=== PATIENT | female | born 1995 | race Caucasian/White ===

== ENCOUNTER → 2017-10-19 09:30 | Outpatient (CLI) | payer BC, OTHER, SELFPAY ==
[2017-10-19 11:19] LABS: Protein, Urine (Random) 9.8 mg/dL (<11.9)
[2017-10-19 11:21] LABS: Partial Thromboplast Time 29.9 Seconds (24.1-36.2); Prothrombin Time (Protime)PT. 13.3 SECONDS (11.7-14.9)
[2017-10-19 11:23] LABS: ALB/GLOB Ratio 0.7 RATIO (0.9-2.4); AST(SGOT) 15 U/L (15-37); Alanine Aminotransfer ALT/SGPT 12 U/L (13-56); Albumin, Serum 2.5 g/dL (3.2-5.0); Alkaline Phosphatase 135 U/L (45-117); Anion Gap 8 (5-15); BUN 4 mg/dL (7-18); BUN/Creat Ratio 6.3 RATIO (10-20); Chloride 106 mmol/L (98-107); Creatinine, Serum 0.63 mg/dL (0.55-1.02); EST Glomerular Filtration Rate 124 mL/min (>60); Est Glom Filt Rate - Afr Amer 150 mL/min (>60); Globulin 3.8 g/dL (2.2-4.2); Glucose 81 mg/dL (74-106); Potassium 3.7 mmol/L (3.5-5.1); Protein, Total 6.3 g/dL (6.4-8.2); Sodium Level 139 mmol/L (136-145)
[2017-10-19 11:39] LABS: Hematocrit 39.4 % (37-47); Hemoglobin 12.9 g/dl (12.0-15.0); Mean Corp Hgb Conc 32.7 g/gl (32-36); Mean Corpuscular Hgb 30.6 pg (27.0-32.0); Mean Corpuscular Volume 93.6 fL (81-99); Mean Platelet Vol. 11.2 fl (6.2-12.0); Platelet Count 196 K/mm3 (150-450); RBC Distribution Width CV 13.2 % (11.6-14.6); RBC Distribution Width SD 43.8 fl (35.1-43.9); Red Blood Count 4.21 M/mm3 (4.2-5.4); White Blood Count 9.1 K/mm3 (4.4-11.0)
[2017-10-19 11:40] LABS: Scan Indicated on CBC? Y/N NO
[2017-10-19 13:22] LABS: Group B Strep DNA By PCR POSITIVE (Negative); Probe Check PASS
== END ==
PROVIDERS: Family Provider Internal Medicine; PCP Internal Medicine; Visit Provider Obstetrics & Gynecology
DX: Z36.85 Encounter for antenatal screening for Streptococcus B (principal)
CPT/HCPCS: 80053; 82570; 84156; 84550; 85027; 85610; 85730; 87653

== ENCOUNTER 2017-10-22 11:20 | Inpatient (IN) | payer BC, SELFPAY ==
[2017-10-22 11:29] VITALS: BMI 35.6
[2017-10-22] MEDS: miSOPROStol 25 MCG TABLET PO ×2 (12:38→16:28)
[2017-10-22] MEDS: Lactated Ringers 1,000 ML 50 ML IV (12:38)
[2017-10-22 12:40] LABS: Hematocrit 37.8 % (37-47); Hemoglobin 12.6 g/dl (12.0-15.0); Mean Corp Hgb Conc 33.3 g/gl (32-36); Mean Corpuscular Hgb 30.4 pg (27.0-32.0); Mean Corpuscular Volume 91.1 fL (81-99); Mean Platelet Vol. 10.7 fl (6.2-12.0); Platelet Count 196 K/mm3 (150-450); RBC Distribution Width CV 13.3 % (11.6-14.6); RBC Distribution Width SD 43.6 fl (35.1-43.9); Red Blood Count 4.15 M/mm3 (4.2-5.4); Scan Indicated on CBC? Y/N NO
[2017-10-22 12:54] LABS: AST(SGOT) 19 U/L (15-37); Alanine Aminotransfer ALT/SGPT 11 U/L (13-56); EST Glomerular Filtration Rate 130 mL/min (>60); Est Glom Filt Rate - Afr Amer 157 mL/min (>60); Estimated Creatinine Clearance 136.51 ml/min
[2017-10-22 12:55] LABS: ALB/GLOB Ratio 0.7 RATIO (0.9-2.4); AST(SGOT) 17 U/L (15-37); Alanine Aminotransfer ALT/SGPT 12 U/L (13-56); Albumin, Serum 2.4 g/dL (3.2-5.0); Alkaline Phosphatase 141 U/L (45-117); Anion Gap 10 (5-15); BUN 5 mg/dL (7-18); Calcium,Total 7.9 mg/dL (8.5-10.1); Chloride 107 mmol/L (98-107); Creatinine, Serum 0.62 mg/dL (0.55-1.02); EST Glomerular Filtration Rate 125 mL/min (>60); Est Glom Filt Rate - Afr Amer 151 mL/min (>60); Estimated Creatinine Clearance 132.11 ml/min; Globulin 3.6 g/dL (2.2-4.2); Glucose 103 mg/dL (74-106); LDH 189 U/L (84-246); Potassium 3.5 mmol/L (3.5-5.1); Sodium Level 140 mmol/L (136-145); Uric Acid 4.6 mg/dL (2.6-6.0)
[2017-10-22 13:45] LABS: Protein:Creat Ratio 252 mg/g CRE (0-200)
--- NOTE | 2017-10-22 20:31 | PCM.PN.BLA ---
Progress Note LABOR PROGRESS NOTE Denies headache again, vision changes. Has mild cramping pain. AVSS, BP 132/84, P 71 GEN - NAD, AAO x 4 FHR 135, moderate variability, + accelerations, no decelerations TOCO 4/10 min SVE 3/50/-3 A/P: 22yo G1 @ 37 3/7wga IOL for gHTN, Cat I FHR -Labs reviewed and not c/w severe preeclampsia -Will give additional dose 25mcg cytotec -No si/sx worsening HTN -Start PCN for GBS ppx
[2017-10-22] MEDS: Oxytocin 30 units/NS 500 ml 30 UNITS/500 ML IV.SOLN IV (20:49)
[2017-10-23] MEDS: fentaNYL-bupivacaine (epidural) 100 ML BAG EPIDURAL ×4 (05:20→19:58)
--- NOTE | 2017-10-23 07:23 | PCM.PN.BLA ---
Progress Note LABOR PROGRESS NOTE No issues overnight. She is comfortable with epidural. Denies headache, vision changes. AVSS, BP 136/76, 140/73. P 76 R 17 GEN - NAD, AAO x 3 FHR 150, moderate variability, + accelerations. No decelerations TOCO 4/10 min A/P: 22yo G1 @ 37 4/7wga with gHTN, IOL on s/p cytotec on pitocin, Cat I FHR -Amniotomy performed with clear fluid -Repeat SVE in approx 1 hour, if no change place IUPC.
[2017-10-23] MEDS: Lactated Ringers 1,000 ML 50 ML IV ×4 (08:15→23:15)
--- NOTE | 2017-10-23 15:00 | PCM.PN.BLA ---
Progress Note LABOR PROGRESS NOTE No complaints. Denies headache, vision changes. AVSS GEN - NAD FHR 150, moderate variability, + late decelerations SVE 5/90/-2 by my exam TOCO 3/10 min, MVU > 200 A/P: 22yo G1@ 37 4/7wga, IOL for gHTN, Cat II FHR -FHR decelerations resolved with maternal repositioning -Continue pitocin as tolerated by mother and fetus
--- NOTE | 2017-10-23 18:16 | PCM.PN.BLA ---
Progress Note LABOR PROGRESS NOTE Denies headache, vision changes, RUQ or abdominal pain. She feels well. AVSS, BP 143/87 GEN - NAD, AAO x 3 FHR 165, moderate variability, + accelerations, no deceleration SVE 6/95/-1 per MAXINE Mcgee TOCO 3/10 min A/P: 22yo G1 @ 37 4/7wga with gHTN, IOL on pitocin, Cat I FHR -Continue pitocin as tolerated by mother and fetus -No si/sx of worsening hypertension or preeclampsia -Maternal and statuses overall reassuring
[2017-10-24] MEDS: Lactated Ringers 1,000 ML 50 ML IV (04:00)
[2017-10-24] MEDS: fentaNYL-bupivacaine (epidural) 100 ML BAG EPIDURAL ×2 (04:30→06:30)
[2017-10-24] MEDS: Ondansetron 4 MG/2 ML Vial IV (04:54)
[2017-10-24] MEDS: Oxytocin 30 units/NS 500 ml 30 UNITS/500 ML IV.SOLN 334 UNITS IV (08:40)
[2017-10-24] MEDS: Methylergonovine 0.2 MG/ML Ampul IM (08:42)
--- NOTE | 2017-10-24 08:53 | PCM.OB.VAG ---
Vaginal Delivery Maternal Presentation: Medically Indicated Induction Method of Induction: Amniotomy, Cytotec Medical Reason for Induction: Gestational Hypertension Amniotic Membrane Rupture Type: Artificial Amniotic Fluid Description: Clear Final AYAAN: 11/09/17 Final AYAAN Source: US <20 weeks Gestational age: 37 Weeks and 5 Days Date of Procedure: 10/24/17 Pre-Operative Diagnosis: IUP, Gestational Hypertension Post-Operative Diagnosis: IUP, Gestational Hypertension Surgery/ Procedure Performed: Vacuum Assisted Vaginal Delivery Type of Anesthesia: Epidural, Local with 1% lidocaine Description of Procedure: Spontaneous vaginal delivery of a viable male with Apgars of 7/9/9 with a 3 vessel normal placenta and cord around the neck ?1 loose. No episiotomy. Second-degree midline laceration repaired with 3-0 Vicryl suture with epidural and local anesthetic. Kiwi vacuum used ?3 gentle pulls from low outlet with a single pop off to expedite delivery of the head after approximately 4-5 hours of pushing and maternal fatigue. Sponge counts okay. Delivery physician: Doroteo Gilmore MD. Presentation: Vertex Placental Delivery Description: Spontaneous Placenta Disposition: [facility] Cord Vessel Description: 3 Vessels Cord Gases drawn per routine: ABG Cord Entanglement: Around neck x 1, loose Estimated Blood Loss: 250 cc Infant A gender: Male (1 minute): 7 (5 minute): 9 Episiotomy Description: None Laceration: Midline, Perineal Extension/lac, 2nd degree Medications given after delivery: IV Pitocin, IM Methergin Complications: None
--- NOTE | 2017-10-24 08:58 | OP.PCM_ITS ---
Vaginal Delivery Maternal Presentation: Medically Indicated Induction Method of Induction: Amniotomy, Cytotec Medical Reason for Induction: Gestational Hypertension Amniotic Membrane Rupture Type: Artificial Amniotic Fluid Description: Clear Final AYAAN: 11/09/17 Final AYAAN Source: US <20 weeks Gestational age: 37 Weeks and 5 Days Date of Procedure: 10/24/17 Pre-Operative Diagnosis: IUP, Gestational Hypertension Post-Operative Diagnosis: IUP, Gestational Hypertension Surgery/ Procedure Performed: Vacuum Assisted Vaginal Delivery Type of Anesthesia: Epidural, Local with 1% lidocaine Description of Procedure: Spontaneous vaginal delivery of a viable male with Apgars of 7/9/9 with a 3 vessel normal placenta and cord around the neck ?1 loose. No episiotomy. Second-degree midline laceration repaired with 3-0 Vicryl suture with epidural and local anesthetic. Kiwi vacuum used ?3 gentle pulls from low outlet with a single pop off to expedite delivery of the head after approximately 4-5 hours of pushing and maternal fatigue. Sponge counts okay. Delivery physician : Doroteo Gilmore MD. Presentation: Vertex Placental Delivery Description: Spontaneous Placenta Disposition: [facility] Cord Vessel Description: 3 Vessels Cord Gases drawn per routine: ABG Cord Entanglement: Around neck x 1, loose Estimated Blood Loss: 250 cc Infant A gender: Male (1 minute): 7 (5 minute): 9 Episiotomy Description: None Laceration: Midline, Perineal Extension/lac, 2nd degree Medications given after delivery: IV Pitocin, IM Methergin Complications: None
--- NOTE | 2017-10-24 08:58 | PCM.DCVAG ---
Discharge Diet: No Restrictions Discharge Activity: May Shower, May Take a Tub Bath May resume sexual activity in: 4-6 weeks Additional Activity Instructions:: Nothing in the vagina for 4-6 weeks. You may return to work/school in 6 weeks. Call your doctor if you observe: Fever of 101 or Higher, Inability to urinate, Inability to have a bowel movement, Using more than one pad per hour Additional Instructions: If you experience any of the following, contact your healthcare provider. Bleeding that soaks a pad every hour for 2 hours Unrelieved incision or abdominal pain Swelling, redness, discharge or bleeding from your incision or episiotomy site Your incision begins to separate Problems urinating (including inability to urinate or burning while urinating). Visual changes Severe headache Flu-like symptoms Pain or redness in one of both of your breasts Pain, warmth, tenderness or swelling in your legs, especially the calf area Frequent nausea and vomiting Symptoms of depression or anxiety If you experience any of the following, call 911 or go to the nearest Emergency Room. Chest pain Problems breathing Seizure activity Partial or complete paralysis of a body part, slurred speech, weakness or drooping of the face, or a sudden inability to walk or hold your balance Allergies/Adverse Reactions: Allergies No Known Allergies Allergy (Verified 10/22/17 11:58) Medications to take at Discharge Vits [Prenatabs FA] 1 tablet PO DAILY 10/22/17 Please Follow Up With: Danuta Heredia MD - [phone] When: Call to make an appointment with your doctor in 6 weeks. Primary Care Physician: Ann Zhu DO [Primary Care Provider] -
--- NOTE | 2017-10-24 08:59 | DCINST_ITS ---
Discharge Diet: No Restrictions Discharge Activity: May Shower, May Take a Tub Bath May resume sexual activity in: 4-6 weeks Additional Activity Instructions:: Nothing in the vagina for 4-6 weeks. You may return to work/school in 6 weeks. Call your doctor if you observe: Fever of 101 or Higher, Inability to urinate, Inability to have a bowel movement, Using more than one pad per hour Additional Instructions: If you experience any of the following, contact your healthcare provider. * Bleeding that soaks a pad every hour for 2 hours * Unrelieved incision or abdominal pain * Swelling, redness, discharge or bleeding from your incision or episiotomy site * Your incision begins to separate * Problems urinating (including inability to urinate or burning while urinating) . * Visual changes * Severe headache * Flu-like symptoms * Pain or redness in one of both of your breasts * Pain, warmth, tenderness or swelling in your legs, especially the calf area * Frequent nausea and vomiting * Symptoms of depression or anxiety If you experience any of the following, call 911 or go to the nearest Emergency Room. * Chest pain * Problems breathing * Seizure activity * Partial or complete paralysis of a body part, slurred speech, weakness or drooping of the face, or a sudden inability to walk or hold your balance Allergies/Adverse Reactions: Allergies No Known Allergies Allergy (Verified 10/22/17 11:58) Medications to take at Discharge Vits [Prenatabs FA] 1 tablet PO DAILY 10/22/17 Please Follow Up With: Danuta Heredia MD - [phone] When: Call to make an appointment with your doctor in 6 weeks. Primary Care Physician: Ann Zhu DO [Primary Care Provider] -
[2017-10-24] MEDS: Oxytocin 30 units/NS 500 ml 30 UNITS/500 ML IV.SOLN 167 UNITS IV (09:10)
[2017-10-24] MEDS: 0.9% Saline Lock 10 ML Syringe IV (10:18)
[2017-10-24 11:35] VITALS: BP 140/82; PULSE 70; RESP 14; TEMP 37.1; O2SAT 98
[2017-10-24] MEDS: Senna/Docusate Sodium 1 Tablet PO (13:04)
[2017-10-24] MEDS: Ibuprofen 600 MG Tablet PO (13:04)
[2017-10-24 16:35] VITALS: BP 121/73; PULSE 69; RESP 14; TEMP 37.1; O2SAT 98
[2017-10-24 21:00] VITALS: BP 115/76; PULSE 68; RESP 18; TEMP 36.6; O2SAT 98
[2017-10-24 23:35] VITALS: BP 124/82; PULSE 86; RESP 16; TEMP 36.9; O2SAT 97
[2017-10-25 03:00] VITALS: BP 130/77; PULSE 86; RESP 16; TEMP 36.3; O2SAT 97
--- NOTE | 2017-10-25 07:57 | PCM.PN.OB ---
Subjective: Patient without complaints. Breast-feeding going well. Desires to stay until tomorrow. - Physical Exam Vital Signs AF, VSS Temp Pulse Resp BP Pulse Ox 97.4 F L 86 16 130/77 H 97 10/25/17 03:00 10/25/17 03:00 10/25/17 03:00 10/25/17 03:00 10/25/17 03:00 Oxygen Delivery Method Room Air Weight: 220 lb 10.923 oz Body Mass Index (BMI) 35.6 Intake and Output for Last 24 Hours 10/23/17 10/24/17 10/25/17 23:59 23:59 23:59 Intake Total 7533 / 7533 Output Total 3450 / 3450 Balance 4083 / 4083 Medical Necessity - Tobacco Use Smoking Status: Never smoker Assessment/Plan Doing well. Continue present care. Anticipate release tomorrow.
[2017-10-25 10:00] VITALS: BP 115/75; PULSE 64; RESP 16; TEMP 36.9
[2017-10-25] MEDS: Ibuprofen 600 MG Tablet PO ×2 (11:12→18:38)
[2017-10-25] MEDS: Senna/Docusate Sodium 1 Tablet PO (11:14)
[2017-10-25 14:00] VITALS: BP 119/71; PULSE 69; RESP 16; TEMP 36.8
[2017-10-25 15:09] LABS: Hematocrit 34.2 % (37-47); Hemoglobin 11.9 g/dl (12.0-15.0); Mean Corp Hgb Conc 34.8 g/gl (32-36); Mean Corpuscular Hgb 31.6 pg (27.0-32.0); Mean Platelet Vol. 10.6 fl (6.2-12.0); Platelet Count 206 K/mm3 (150-450); RBC Distribution Width CV 13.6 % (11.6-14.6); RBC Distribution Width SD 44.3 fl (35.1-43.9); Red Blood Count 3.76 M/mm3 (4.2-5.4); White Blood Count 16.6 K/mm3 (4.4-11.0)
[2017-10-25 15:11] LABS: Scan Indicated on CBC? Y/N NO
[2017-10-25 21:00] VITALS: BP 124/78; PULSE 68; RESP 15; TEMP 37.1
[2017-10-26 02:00] VITALS: BP 127/76; PULSE 74; RESP 15
--- NOTE | 2017-10-26 08:25 | PCM.PN.OB ---
Subjective: No issues overnight. Nursing is going well. Denies headache, vision changes or abdominal pain. Lochia is scant. Her swelling is improved from yesterday. Objective: AVSS - Physical Exam General: Alert, Oriented x3, Cooperative, No apparent distress HEENT: Atraumatic, Normocephalic Lungs: Normal air movement Cardiovascular: Regular rate, Regular Rhythm, Normal S1, Normal S2 Abdomen: Soft, Non Tender, Non-Distended, - - Fundus firm and nontender at 2 FW below umbilicus Extremities: - - +2 b/l pedal edema to below the knee Neurological: Neuro grossly intact Psych/Mental Status: Normal Affect, Appropriate, Alert and oriented to time, place, person, mood and affect Vital Signs Temp Pulse Resp BP Pulse Ox 97.6 F L 70 16 123/72 H 98 10/26/17 08:30 10/26/17 08:30 10/26/17 08:30 10/26/17 08:30 10/26/17 08:30 Oxygen Delivery Method Room Air Weight: 100.1 kg Body Mass Index (BMI) 35.6 Laboratory Tests Past 24 Hrs 10/25/17 14:35 WBC 16.6 H RBC 3.76 L Hgb 11.9 L Hct 34.2 L MCV 91.0 MCH 31.6 MCHC 34.8 RDW 13.6 RDW Differential 44.3 H Plt Count 206 MPV 10.6 Medical Necessity - Tobacco Use Smoking Status: Never smoker Assessment/Plan 22yo PPD#2 s/p VAVD doing well -h/o gHTN, no si/sx worsening -Rh positive -Plan for d/c home today
[2017-10-26 08:30] VITALS: BP 123/72; PULSE 70; RESP 16; TEMP 36.4; O2SAT 98
[2017-10-26] MEDS: Dibucaine 30 GM Tube 1 APPLIC TOPICAL (08:30)
--- NOTE | 2017-10-26 11:38 | PCM.DCVAG ---
Discharge Diet: No Restrictions Discharge Activity: Return to Normal Activity, May Shower, May Take a Tub Bath May resume sexual activity in: 6 weeks Lifting Restrictions: 20 lb Additional Activity Instructions:: Nothing in the vagina for 4-6 weeks. You may return to work/school in 6 weeks. Call your doctor if you observe: Fever of 101 or Higher, Inability to urinate, Inability to have a bowel movement, Using more than one pad per hour, Chest pain Additional Instructions: If you experience any of the following, contact your healthcare provider. Bleeding that soaks a pad every hour for 2 hours Fever 100.4 or higher Unrelieved incision or abdominal pain Swelling, redness, discharge or bleeding from your incision or episiotomy site Your incision begins to separate Problems urinating (including inability to urinate or burning while urinating). Visual changes Severe headache Flu-like symptoms Pain or redness in one of both of your breasts Pain, warmth, tenderness or swelling in your legs, especially the calf area Frequent nausea and vomiting Symptoms of depression or anxiety If you experience any of the following, call 911 or go to the nearest Emergency Room. Chest pain Problems breathing Seizure activity Partial or complete paralysis of a body part, slurred speech, weakness or drooping of the face, or a sudden inability to walk or hold your balance Allergies/Adverse Reactions: Allergies No Known Allergies Allergy (Verified 10/22/17 11:58) Medications to take at Discharge Vits [Prenatabs FA] 1 tablet PO DAILY 10/22/17 Please Follow Up With: Danuta Heredia MD - Nurse BP check only When: 1 week Please Follow Up With: Danuta Heredia MD - visit When: 6 weeks Primary Care Physician: Ann Zhu DO [Primary Care Provider] -
--- NOTE | 2017-10-26 11:41 | DCINST_ITS ---
Discharge Diet: No Restrictions Discharge Activity: Return to Normal Activity, May Shower, May Take a Tub Bath May resume sexual activity in: 6 weeks Lifting Restrictions: 20 lb Additional Activity Instructions:: Nothing in the vagina for 4-6 weeks. You may return to work/school in 6 weeks. Call your doctor if you observe: Fever of 101 or Higher, Inability to urinate, Inability to have a bowel movement, Using more than one pad per hour, Chest pain Additional Instructions: If you experience any of the following, contact your healthcare provider. * Bleeding that soaks a pad every hour for 2 hours * Fever 100.4 or higher * Unrelieved incision or abdominal pain * Swelling, redness, discharge or bleeding from your incision or episiotomy site * Your incision begins to separate * Problems urinating (including inability to urinate or burning while urinating) . * Visual changes * Severe headache * Flu-like symptoms * Pain or redness in one of both of your breasts * Pain, warmth, tenderness or swelling in your legs, especially the calf area * Frequent nausea and vomiting * Symptoms of depression or anxiety If you experience any of the following, call 911 or go to the nearest Emergency Room. * Chest pain * Problems breathing * Seizure activity * Partial or complete paralysis of a body part, slurred speech, weakness or drooping of the face, or a sudden inability to walk or hold your balance Allergies/Adverse Reactions: Allergies No Known Allergies Allergy (Verified 10/22/17 11:58) Medications to take at Discharge Vits [Prenatabs FA] 1 tablet PO DAILY 10/22/17 Please Follow Up With: Danuta Heredia MD - Nurse BP check only When: 1 week Please Follow Up With: Danuta Heredia MD - visit When: 6 weeks Primary Care Physician: Ann Zhu DO [Primary Care Provider] -
[2017-10-26 13:14] VITALS: PULSE 64; RESP 18; TEMP 36.9
== END 2017-10-26 13:05 | disposition home or self-care (01) | DRG 775 ==
PROVIDERS: Obstetrics & Gynecology; Admitting Provider Obstetrics & Gynecology; Family Provider Internal Medicine; PCP Internal Medicine; Visit Provider Obstetrics & Gynecology
DX: O13.3 Gestational [pregnancy-induced] hypertension without significant proteinuria, third trimester (principal); O69.81X0 Labor and delivery complicated by cord around neck, without compression, not applicable or unspecified; O70.1 Second degree perineal laceration during delivery; O99.824 Streptococcus B carrier state complicating childbirth; Z37.0 Single live birth; Z3A.37 37 weeks gestation of pregnancy
CPT/HCPCS: 59025; 59050; 80053; 82565; 82570; 83615; 84156; 84450; 84460; 84550; 85027; 86850; 86900; 99218; J7120; A4216; G0378; J2405

== ENCOUNTER → 2020-05-28 07:16 | Outpatient (CLI) | payer BC, SELFPAY ==
[2020-05-28 08:28] LABS: T3 Total - Triiodothyronine 1.03 ng/mL (0.6-1.81)
[2020-05-28 08:47] LABS: Estradiol 31.4 pg/mL; Follicle Stimulating Hormone 5.8 mIU/mL; Free T3 2.5 pg/mL (2.18-3.98); Luteinizing Hormone 7.8 mIU/mL; Prolactin 11.4 ng/mL; T4 Free Direct 0.91 ng/dL (0.76-1.46); Thyroid Stim Hormone (TSH) 2.33 uIU/mL (0.358-3.74)
[2020-05-29 20:07] LABS: Thyroid Peroxidase AB < 9 IU/mL (0-34)
[2020-05-30 09:10] LABS: Anti-Thyroglobulin AB < 1.0 IU/mL (0.0-0.9); Sex Hormone-binding Globulin 45.7 nmol/L (24.6-122.0); Thyroglobulin, Serum Qt. 13.2 ng/mL (1.5-38.5)
[2020-06-04 16:15] LABS: 17-Hydroxyprogesterone 47 ng/dL (.)
== END ==
PROVIDERS: Referring Provider Obstetrics & Gynecology; Visit Provider Obstetrics & Gynecology
DX: E03.9 Hypothyroidism, unspecified (principal); N92.5 Other specified irregular menstruation; E28.1 Androgen excess; E22.1 Hyperprolactinemia
CPT/HCPCS: 36415; 82533; 82627; 82670; 83001; 83002; 83498; 84146; 84270; 84403; 84432; 84439; 84443; 84480; 84481; 86376; 86800; 82626

== ENCOUNTER → 2020-07-03 | Outpatient (CLI) | payer BC, SELFPAY ==
[2020-07-07 12:55] LABS: HPV Reflexed? NOT INDICATED
== END | disposition home or self-care (01) ==
LOC: LABSPEC 13:45
PROVIDERS: Visit Provider Obstetrics & Gynecology
DX: Z12.4 Encounter for screening for malignant neoplasm of cervix (principal)
CPT/HCPCS: 88175; G0145

== ENCOUNTER → 2020-08-06 08:34 | Outpatient (CLI) | payer BC, SELFPAY ==
[2020-08-06 11:34] LABS: Estradiol 22.4 pg/mL
== END ==
PROVIDERS: Visit Provider Obstetrics & Gynecology
DX: E28.1 Androgen excess (principal); N96 Recurrent pregnancy loss; E28.8 Other ovarian dysfunction
CPT/HCPCS: 36415; 82627; 82670; 84403; 82626

== ENCOUNTER → 2020-08-24 08:06 | Outpatient (CLI) | payer BC, SELFPAY ==
[2020-08-24 09:24] LABS: Progesterone Level 0.91 ng/mL (See Comment)
== END ==
PROVIDERS: Referring Provider Obstetrics & Gynecology; Visit Provider Obstetrics & Gynecology
DX: Z51.81 Encounter for therapeutic drug level monitoring (principal); N92.5 Other specified irregular menstruation; E28.8 Other ovarian dysfunction
CPT/HCPCS: 36415; 84144

== ENCOUNTER → 2020-09-25 08:09 | Outpatient (CLI) | payer BC, SELFPAY ==
[2020-09-25 10:10] LABS: Progesterone Level 0.48 ng/mL (See Comment)
== END ==
PROVIDERS: Referring Provider Obstetrics & Gynecology; Visit Provider Obstetrics & Gynecology
DX: E28.8 Other ovarian dysfunction (principal)
CPT/HCPCS: 36415; 84144

== ENCOUNTER → 2020-11-23 08:50 | Outpatient (CLI) | payer BC, SELFPAY ==
[2020-11-23 10:21] LABS: hCG Titer Quant., Serum 22 mIU/mL (1-3)
== END ==
LOC: LAB.FUTURE 08:54 → WOBLAB 09:12
PROVIDERS: Visit Provider Obstetrics & Gynecology
DX: N91.2 Amenorrhea, unspecified (principal)
CPT/HCPCS: 36415; 84702

== ENCOUNTER → 2021-01-29 15:53 | Outpatient (CLI) | payer BC, SELFPAY ==
[2021-01-29 17:19] LABS: Vitamin B12 641 pg/mL (211-911)
== END ==
PROVIDERS: Visit Provider Obstetrics & Gynecology
DX: Z34.82 Encounter for supervision of other normal pregnancy, second trimester (principal); E53.8 Deficiency of other specified B group vitamins; I10 Essential (primary) hypertension
CPT/HCPCS: 36415; 82607; 83090; 83921

== ENCOUNTER → 2021-05-14 12:13 | Outpatient (CLI) | payer BC, SELFPAY ==
[2021-05-14 14:06] LABS: Hematocrit 37.5 % (37-47); Hemoglobin 12.2 g/dL (12.0-15.0); Mean Corp Hgb Conc 32.5 g/dL (32-36); Mean Corpuscular Hgb 31.1 pg (27.0-32.0); Mean Corpuscular Volume 95.7 fL (81-99); Mean Platelet Vol. 10.4 fl (6.2-12.0); Platelet Count 224 K/mm3 (150-450); RBC Distribution Width CV 13.4 % (11.6-14.6); Red Blood Count 3.92 M/mm3 (4.2-5.4); White Blood Count 9.3 K/mm3 (4.4-11.0)
== END ==
PROVIDERS: Visit Provider Obstetrics & Gynecology
DX: Z34.83 Encounter for supervision of other normal pregnancy, third trimester (principal)
CPT/HCPCS: 36415; 85027

== ENCOUNTER → 2021-07-04 14:04 | Outpatient (CLI) | payer BC, SELFPAY ==
[2021-07-04 14:29] LABS: Bacteria 0 SEEN /hpf (None Seen); Mucous, Urine 0 SEEN /hpf (<or=2+); Red Blood Cells-Urine 0 SEEN /hpf (0-5); White Blood Cells 0 SEEN /hpf (0-5)
[2021-07-04 15:23] LABS: Color, Urine Yellow (Yellow); Glucose, Dipstick Normal (Normal); Ketone-Dipstick Negative (Negative); Leukocyte Esterase-Dipstick Negative /ul (Negative); Nitrite-Dipstick Negative (Negative); Occult Blood-Urine Negative /ul (Negative); Protein-Dipstick Negative (Negative); Urine Bilirubin Dipstick Negative (Negative); Urine Clarity Sl. Cloudy (Clear); Urine Urobilinogen Normal (Normal); Urine pH 6.5 (5.0 - 8.0)
[2021-07-04 15:34] LABS: Hematocrit 38.4 % (37-47); Hemoglobin 12.7 g/dL (12.0-15.0); Mean Corp Hgb Conc 33.1 g/dL (32-36); Mean Corpuscular Hgb 30.5 pg (27.0-32.0); Mean Corpuscular Volume 92.1 fL (81-99); Mean Platelet Vol. 10.8 fl (6.2-12.0); Platelet Count 212 K/mm3 (150-450); RBC Distribution Width CV 13.6 % (11.6-14.6); RBC Distribution Width SD 45.5 fl (35.1-43.9); Red Blood Count 4.17 M/mm3 (4.2-5.4); White Blood Count 5.9 K/mm3 (4.4-11.0)
[2021-07-04 15:39] LABS: Squamous Epithelial Cells - UA 5-10 SEEN /hpf (5-10)
[2021-07-04 16:15] LABS: ALB/GLOB Ratio 0.5 RATIO (0.9-2.4); AST(SGOT) 80 U/L (15-37); Alanine Aminotransfer ALT/SGPT 114 U/L (13-56); Albumin, Serum 2.3 g/dL (3.2-5.0); Alkaline Phosphatase 161 U/L (45-117); Anion Gap 7 (5-15); BUN 6 mg/dL (7-18); BUN/Creat Ratio 9.9 RATIO (10-20); Calcium,Total 8.3 mg/dL (8.5-10.1); Chloride 108 mmol/L (98-107); Creatinine, Serum 0.61 mg/dL (0.55-1.02); EST Glomerular Filtration Rate 125 mL/min (>60); Est Glom Filt Rate - Afr Amer 151 mL/min (>60); Globulin 4.2 g/dL (2.2-4.2); Glucose 100 mg/dL (74-106); Potassium 3.5 mmol/L (3.5-5.1); Protein, Total 6.5 g/dL (6.4-8.2); Sodium Level 139 mmol/L (136-145); Uric Acid 5.1 mg/dL (2.6-6.0)
== END ==
PROVIDERS: Referring Provider Obstetrics & Gynecology; Visit Provider Obstetrics & Gynecology
DX: O26.893 Other specified pregnancy related conditions, third trimester (principal); R10.811 Right upper quadrant abdominal tenderness; Z3A.00 Weeks of gestation of pregnancy not specified
CPT/HCPCS: 36415; 80053; 81001; 84550; 85027; 87506

== ENCOUNTER → 2021-07-05 08:14 | Outpatient (CLI) | payer BC, SELFPAY | PROVIDERS: Referring Provider Obstetrics & Gynecology; Visit Provider Obstetrics & Gynecology | DX: R69 Illness, unspecified (principal) ==

== ENCOUNTER → 2021-07-11 09:21 | Outpatient (CLI) | payer BC, SELFPAY ==
[2021-07-11 10:41] LABS: AST(SGOT) 39 U/L (15-37); Alanine Aminotransfer ALT/SGPT 83 U/L (13-56); Albumin, Serum 2.3 g/dL (3.2-5.0); Alkaline Phosphatase 179 U/L (45-117); Bilirubin, Direct 0.14 mg/dL (0.00-0.30); Globulin 4.4 g/dL (2.2-4.2); Protein, Total 6.7 g/dL (6.4-8.2)
== END ==
PROVIDERS: Referring Provider Obstetrics & Gynecology; Visit Provider Obstetrics & Gynecology
DX: R19.7 Diarrhea, unspecified (principal); O13.3 Gestational [pregnancy-induced] hypertension without significant proteinuria, third trimester; Z3A.00 Weeks of gestation of pregnancy not specified
CPT/HCPCS: 36415; 80053; 80076; 83615; 85027

== ENCOUNTER → 2021-07-15 | Outpatient (CLI) | payer BC, SELFPAY | END | disposition home or self-care (01) | LOC: LABSPEC 14:59 | PROVIDERS: Visit Provider Obstetrics & Gynecology | DX: Z36.85 Encounter for antenatal screening for Streptococcus B (principal) | CPT/HCPCS: 87081 ==

== ENCOUNTER → 2021-07-18 10:31 | Outpatient (CLI) | payer BC, SELFPAY ==
[2021-07-18 13:08] LABS: Hematocrit 38.3 % (37-47); Hemoglobin 12.6 g/dL (12.0-15.0); Mean Corp Hgb Conc 32.9 g/dL (32-36); Mean Corpuscular Hgb 30.9 pg (27.0-32.0); Mean Corpuscular Volume 93.9 fL (81-99); Mean Platelet Vol. 12.2 fl (6.2-12.0); Platelet Count 181 K/mm3 (150-450); RBC Distribution Width CV 13.9 % (11.6-14.6); RBC Distribution Width SD 47.2 fl (35.1-43.9); Red Blood Count 4.08 M/mm3 (4.2-5.4); White Blood Count 6.1 K/mm3 (4.4-11.0)
[2021-07-18 13:23] LABS: ALB/GLOB Ratio 0.5 RATIO (0.9-2.4); AST(SGOT) 17 U/L (15-37); Alanine Aminotransfer ALT/SGPT 27 U/L (13-56); Albumin, Serum 2.1 g/dL (3.2-5.0); Alkaline Phosphatase 171 U/L (45-117); Anion Gap 5 (5-15); BUN 12 mg/dL (7-18); BUN/Creat Ratio 15.9 RATIO (10-20); Calcium,Total 8.7 mg/dL (8.5-10.1); Chloride 109 mmol/L (98-107); Creatinine, Serum 0.75 mg/dL (0.55-1.02); EST Glomerular Filtration Rate 98 mL/min (>60); Est Glom Filt Rate - Afr Amer 118 mL/min (>60); Globulin 4.2 g/dL (2.2-4.2); Glucose 88 mg/dL (74-106); LDH 158 U/L (84-246); Potassium 3.9 mmol/L (3.5-5.1); Protein, Total 6.3 g/dL (6.4-8.2); Sodium Level 140 mmol/L (136-145)
== END ==
PROVIDERS: Obstetrics & Gynecology; Visit Provider Obstetrics & Gynecology
DX: R51.9 Headache, unspecified (principal)
CPT/HCPCS: 36415; 80053; 83615; 85027

== ENCOUNTER 2021-08-07 05:50 | Inpatient (IN) | payer BC, SELFPAY ==
[2021-08-07] VITALS (49 sets, daily range): BP systolic 108–135; BP diastolic 55–84; PULSE 59–90; RESP 16; TEMP 36.7–38.3; O2SAT 90–100; BMI 32.9
[2021-08-07] MEDS: Lactated Ringers 1,000 ML 50 ML IV (06:10)
[2021-08-07] MEDS: Lactated Ringers 500 ML 999 ML IV (06:16)
[2021-08-07 06:33] LABS: Absolute Lymphocyte Count 1.21 X10^3/uL (0.83-4.51); Absolute Neutrophil Count 7.4 X10^3/uL (2.0-7.7); Basophil# 0.06 X10^3/uL; Basophil% 0.6 % (0-1); Eosinophil# 0.05 X10^3/uL; Eosinophils% 0.5 % (0-5); Hematocrit 39.9 % (37-47); Hemoglobin 13.6 g/dL (12.0-15.0); Lymphocyte # 1.21 X10^3/ul (0.83-4.51); Lymphocyte % 12.4 % (19-41); Mean Corp Hgb Conc 34.1 g/dL (32-36); Mean Corpuscular Hgb 31.1 pg (27.0-32.0); Mean Corpuscular Volume 91.1 fL (81-99); Mean Platelet Vol. 11.6 fl (6.2-12.0); Monocyte# 1.04 X10^3/uL; Monocyte% 10.7 % (0-10); NRBC Flagged by Analyzer 0 % (0-5); Neutrophil # 7.35 X10^3/uL (2.7-7.7); Neutrophil % 75.3 % (47-70); Platelet Count 171 K/mm3 (150-450); RBC Distribution Width SD 46.7 fl (35.1-43.9); Red Blood Count 4.38 M/mm3 (4.2-5.4); White Blood Count 9.8 K/mm3 (4.4-11.0)
[2021-08-07 07:26] LABS: Bedside Glucose 102 mg/dL (70-110)
[2021-08-07 07:26] LABS: Bedside Glucose 109 mg/dL (70-110)
[2021-08-07] MEDS: fentaNYL-bupivacaine (epidural) 100 ML BAG EPIDURAL ×2 (07:56→12:29)
[2021-08-07 11:06] LABS: Bedside Glucose 89 mg/dL (70-110)
[2021-08-07] MEDS: Lactated Ringers 1,000 ML 200 ML IV ×2 (11:18→16:38)
[2021-08-07 12:11] LABS: Bedside Glucose 90 mg/dL (70-110)
[2021-08-07 13:41] LABS: Bedside Glucose 81 mg/dL (70-110)
[2021-08-07 15:20] LABS: Bedside Glucose 86 mg/dL (70-110)
[2021-08-07] MEDS: Acetaminophen 500 MG Tablet PO (15:20)
[2021-08-07 16:50] LABS: Bedside Glucose 75 mg/dL (70-110)
[2021-08-07] MEDS: Oxytocin 30 units/NS 500 ml 30 UNITS/500 ML IV.SOLN 334 UNITS IV (18:53)
--- NOTE | 2021-08-07 19:06 | PCM.HP.BLA ---
History and Physical Date of Admission: 08/07/21 ACOG ANTEPARTUM RECORD - HISTORY AND PHYSICAL (08/07/2021) Name: MINH VALENCIA History of this : This is a 26 year old [id number] presents at 40 wks + 4 days gestation in active labor. OB Physician: Danuta Sauceda MD 's Physician: Acosta ...................................................................... : 1995 Age: 26 Address: [address] [place] [address] Phone: (H) [phone] Insurance Carrier: [employer] [facility] [id number] Emergency Contact: AMADO VALENCIA/ [phone] ...................................................................... 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 His mom had surgical repair. 's family is Nepalese, unknown if tested for B-Thalassemia Migraines NOT immune to Rubella RGI. 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 Illicit Drug Use - denies use of street drugs Sexual Activity - Residence - lives with Place of - [place], [place] Hours Worked - 40 hours per week Spouse-Sig Other Name - Amado Spouse-Sig Other Occupation - [employer] Spouse-Sig Other Phone No - [phone] Children Name(s) - Amado Medrano PRIOR DELIVERY HISTORY DEL DATE GEST LAB WT LB WT OZ TYPE ANES LABOR TX 31 Oct 11 [phone] Vacuu Epidural No ANTEPARTUM FLOW CHART VISIT GE RTC FU F F CT U U DATE WK MD WKS HT PN HR M SS BP ED WT CT GL D EF ST __ ____ ___ __ __ ___ __ __ __ ___ __ __ __ ___ __ 11 Jul SHM 1 40 V + + 112/86 sl 205 tr - 3 50 -3 04 Jul SHM 1 39 V + + 116/74 sl 204 ne ne 29 Jun SHM 1 38 V + + 126/82 1+ 205 tr ne 20 Jun JM 1 37 V + + 124/64 sl 202 - - 07 Jun SHM 2 35 V + + 118/68 0 199 - - 23 May SHM 2 33 V + + 124/82 0 195 - - 09 May SHM 2 31 V + + 122/78 0 196 - - 19 May 23 SHM 2 28 ? + + 104/62 0 196 - - 20 Apr 19 SHM 4 26 ? + + 122/66 0 192 - - 24 Mar 15 SHM 4 21 + + 112/72 0 187 tr - 03 Mar 12 SHM 4 + O 110/76 0 184 - - 06 Feb 05 SHM 4 13 on o 104/60 0 180 - - ANTEPARTUM NOTE(S): Aug 06 2021: mild ctx's Jul 30 2021: Jul 24 2021: Pelvic pain at times, FM good. Jul 15 2021: doing well Jul 02 2021: doing well Jun 18 2021: see note Jun 04 2021: doing well May 14 2021: Apr 15 2021: Plans finger stick instead of regular Glucola check, Mar 19 2021: comp u/s today Feb 26 2021: migraines Jan 29 2021: NOB visit complete. Feels well. COMPREHENSIVE ANTEPARTUM NOTE(S): Aug 06 2021: Minh is here for a pnv at 40/3. Good FM. SL edema present in b/l ankles. Occasional, mild ctx's. Experiencing increased pelvic pressure. Would like to do a cervix check and membrane sweep. Wants to avoid induction if possible. MK Aug 06 2021: Blood sugars reviewed, fastings 70s-80s, postprandials at target. Cervix moderate and posterior. Membranes stripped. Discussed r/b IOL including risk for stillbirth with advancing gestational age. Declines IOL at this time, will plan to go to 42wga. Aug 06 2021: NST scheduled for 10 am on Thursday08/10/21. LMT Jul 30 2021: Minh is here at 39.3 w gest for visit. Baby active. Slight edema in feet, hands. Has had some BH contractions at home. Just tightening. Having some pelvic pressure. Prefers no cervical check this week. JENIFFER. Jul 30 2021: Single elevated postprandial and fasting, other blood sugars wnl. Will plan Expectant management at this time. Discussed membrane stripping, pt considering for next visit. Jul 24 2021: Pt no longer checking blood sugars. Reviewed importance of glucose monitoring. Levels were normalized 3 weeks ago with dietary changes and supplements. Reviewed glucose monitoring in labor. Elevated LFTs repeat last week and downtrending. Jul 17 2021: H taken to OB. tkg Jul 15 2021: Minh is 37w2d. Positive movement, no edema. GBS today and LARC consent signed. Doing well no concerns or complaints. Declone cervical check. BR Jul 15 2021: 37 weeks, GBS collected today. Patient previously with history of diarrhea, and light stools. Labs by Dr. MORSE with initially elevated LFTs, repeat LFTs decreased but slightly elevated. Patient now asymptomatic. Possible viral cause. We will repeat labs later this week. JM Jul 02 2021: 35w3d she states she is doing well. good movement. no edema. she has blood sugars with her today. no concerns or complaints. BR Jul 02 2021: Fasting blood sugars normalized. Will continue expectant management at this time. Pt reports migraines, nausea, vomiting over the weekend, followed by diarrhea, now day 3 with loose stool s blood or mucus. She has intermittent GI cramping, but things are better than prior. Discussed GBS testing timing, ppx. Jun 18 2021: Minh is here for visit. She is doing well. She will write copy of blood sugars for review with Dr MORSE. Reviewed FM, PTL, PROM. Encouraged Tdap and Influenza vaccine. LMT Jun 18 2021: Fasting hyperglycemia. 1h postprandial blood sugars almost all at target. Recommend evening snack. Discussed physiology of elevated fasting blood sugars. Discussed indications for medical management, pt notes not crazy about starting medication. Pt to start myoinositol 4g/day and we discussed role of blackberries and euglycemia foods. Jun 04 2021: Minh is here for visit. Doing well, no complaints or concerns. Reviewed PTL, PROM, and FM. Encouraged Tdap, Influenza, and Covid vaccine. Copy of blood sugars for Dr MORSE review. Only has done am fastings, did not do any after meals. 6 elevated fastings between 96-99. LMT Jun 04 2021: Fasting blood sugars elevated x 6 days 05/23-05/28. Hx with URI coinciding - suspect acute elevation due to illness. Pt to monitor, reviewed dietary management of blood sugars. Advised to resume 1h postprandial monitoring however as none recorded since last visit. PTL, FM precautions. May 14 2021: Minh here for PNV. FM good. Edema check good. Doing well. No concerns today. CB May 14 2021: Elevated fasting blood sugars. Overall 76% normal. Likely mild GDM. Discussed dietary measures for management. Pt to continue fasting blood sugars and 1h postprandial x 2 meals per day. CBC obtained. PTL, ROM, FM precautions. Preeclampsia precautions. c/o leg cramps. Discussed Fe, magnesium, ca supplementation. Apr 15 2021: Minh presents here today at 24.2 weeks and reports that she plans to discuss having her finger stick blood sugar check instead of a OGCT with Glucola. Adds that she had noticed [place] around [place], she had what felt like pre-term contractions with cramping. Discussed s/s of dehydration and encouraged to increase her fluids and rest. HELIO Apr 15 2021: Rx glucometer, test strips and lancets provided. Education in how to do fingersticks performed. PTL precautions. Pt doing childbirth education videos, planning no epidural. Hopes to avoid OP positioning. Some musculoskeletal discomforts. Encouraged continued critical care transport nurse, stretching, exercises. Recommend ASA daily, pt advises me she has decided not to take this. Mar 19 2021: Anatomy scan today, wnl, EFW 36th%, POSTERIOR PLACENTA, ok for . MALE - plans NO CIRC. Is concerned about potential loss of insurance this fall and how that will affect care and delivery. Is searching for microarray analyst to assist in labor. Feb 26 2021: Minh is here for a PNV at 17 wks. Reports weekly migraines, common before this and during her last . Denies vision changes. No other concerns or questions. Does not want AFP/CF testing. MK Jan 29 2021: Minh is here for her NOB visit, she will see Dr. Myrtle Sauceda for a PNV as well. She is a 25 year old A1 (chemical ) with an AYAAN of 08/03/2021, current GA is 13 w 3 d. She is transferring for on-going care form [facility]; was achieved with Clomid and IUI. Minh states that she is very happy about the , as is her , Amado. Minh and Amado have a 3 year old Jan 29 2021: Hx prior hypertension/preeclampsia and vitamin B12 deficiency. On oral supplement. Recommend ASA 81mg for Preeclampsia risk reduction, pt declines. Check Vitamin B12, homocysteine, MMA today. screening reviewed - had carrier screening with RGI and negative for CF, SMA. Carrier for Neuronal ceroid lipofuscinosis. with recent diagnosis of bicuspid valve, asx and had testing 2/2 his REVIEW OF SYSTEMS: GENERAL - Denies fever, or chills SKIN - Denies rash, new skin lesions, or change in moles EYES - Denies blurred vision, or change in visual acuity EARS - Denies ear pain, or difficulty hearing NOSE - Denies nasal congestion, discharge, or bleeding MOUTH - Denies sore throat, or difficulty swallowing NECK - Denies pain or swelling RESPIRATORY - Denies shortness of breath, cough, wheezing CARDIOVASCULAR - Denies palpitations, chest pain, orthopnea, PND, peripheral edema, syncope or claudication GASTROINTESTINAL - Denies nausea, vomiting, diarrhea, constipation, Denies abdominal pain, melena and or bright red blood GENITOURINARY - Denies dysuria, frequency of urination, urgency, or hesitancy MUSCULOSKELETAL - Denies joint or muscle pain, or back pain NEUROLOGICAL - Denies localized numbness, weakness, or tingling PSYCHIATRIC - Denies depression, anxiety, substance abuse or suicide attempts ENDOCRINE - Denies heat or cold intolerance, weight loss or gain, increasing thirst HEMATO-IMMUNOLOGIC - Denies easy bruising, bleeding, oral ulcerations or recurrent infections GENETICS SCREENING: Age 35+ years: No Thalassemia: No Neural Tube Defect: No Down Syndrome: No YEISON-SACHS: No Sickle Cell Disease: No Hemophilia: No Musc. Dystrophy: No Cystic Fibrosis: No-declines screening Alyssa Chorea: No Mental Retardation: No Fragile X: No Other genetic: No Other defects: No SABs/still births: No Drugs since LMP: No INFECTION HISTORY: High risk AIDS: No High risk Hepatitis: No Exposed to TB: No Exposed to Herpes: No Rash/viral illness since LMP: No History of STD: No MENSTRUAL HISTORY: *Menses Amount/Duration: 3 daysMenses Regularity: RegularFrequency: monthlyMenarche (Age Onset): 13* PAST SUMMARY: PARITY: 1. Total Pregnancies............ 2 2. Full Term Pregnancies........ 1 3. Premature.................... 0 4. Abortions - Induced.......... 0 5. Abortions - Spontaneous...... 1 6. Ectopics..................... 0 7. Multiple Births.............. 0 8. Living Children.............. 1 PAST #1: Date of :.................. 10/24/17 Gestation Weeks:................ 37 Length of labor(hours):......... 44 Sex:............................ M Weight-lbs:............... 7 Weight-oz:................ 11 Type of Delivery:............... Vacuum Type of Anesthesia:............. Epidural Place of Delivery:.............. [place] Treatment of Labor?:.... No Comment: TOY HURT, LONG 2ND STAGE, OP PHYSICAL EXAMINATION General Appearence: 26 yo female in no acute distress Vital Signs: AF, VSS Heart: RRR without rubs or gallops Lungs: CTA x 2 Breasts: deferred Abdomen: gravid Pelvis: Cervix: Presentation: cephalic Station: Fetus: Size: AGA Movement: present Heart: present LAB TEST(S) ORDERED SINCE:11/06/20 07/19/2021 MISCELLANEOUS LAB PROCEDURE 07/18/2021 RULE OUT BETA STREP (GRP. B) 07/11/2021 LIVER PROFILE 07/05/2021 ENTERIC PATHOGEN PANEL STOOL 07/04/2021 URINALYSIS, COMPLETE 07/04/2021 URIC ACID 07/04/2021 COMPREHENSIVE METABOLIC PROFIL 07/04/2021 CBC-COMPLETE BLOOD CNT NO DIFF 05/14/2021 CBC-COMPLETE BLOOD CNT NO DIFF 02/01/2021 METHYLMALONIC ACID BLD 01/29/2021 VITAMIN B12 01/29/2021 HOMOCYSTEINE 01/29/2021 GC-Chlamydia 01/18/2021 Initial OB Labs 11/23/2020 HCG TITER QUANT., SERUM 08/07/2021 TYPE AND SCREEN 08/07/2021 COVID 19 AG RAPID (RN COLLECT) 08/07/2021 CBC W/DIFF, AUTOMATED 08/07/2021 BEDSIDE GLUCOSE 07/29/2021 LDH 07/29/2021 COMPREHENSIVE METABOLIC PROFIL 07/29/2021 CBC-COMPLETE BLOOD CNT NO DIFF == ==== Order Observation Description Value Ref_Range A* Site == ==== BEDSIDE GLUCOSE NOTE [facility] BEDSIDE GLUCOSE FINGERSTICK GLU 75 mg/dL 70-110 POCL MANAGEMENT OF PATIENT CARE PER NURSING PROTOCOL BEDSIDE GLUCOSE NOTE [facility] BEDSIDE GLUCOSE FINGERSTICK GLU 86 mg/dL 70-110 POCL MANAGEMENT OF PATIENT CARE PER NURSING PROTOCOL BEDSIDE GLUCOSE NOTE [facility]Z BEDSIDE GLUCOSE FINGERSTICK GLU 81 mg/dL 70-110 POCL MANAGEMENT OF PATIENT CARE PER NURSING PROTOCOL BEDSIDE GLUCOSE NOTE [facility]Z BEDSIDE GLUCOSE FINGERSTICK GLU 90 mg/dL 70-110 POCL MANAGEMENT OF PATIENT CARE PER NURSING PROTOCOL BEDSIDE GLUCOSE NOTE [facility]Z BEDSIDE GLUCOSE FINGERSTICK GLU 89 mg/dL 70-110 POCL MANAGEMENT OF PATIENT CARE PER NURSING PROTOCOL BEDSIDE GLUCOSE NOTE [facility] BEDSIDE GLUCOSE FINGERSTICK GLU 109 mg/dL 70-110 POCL MANAGEMENT OF PATIENT CARE PER NURSING PROTOCOL COVID 19 AG RAP NOTE [facility]~[address] [place], [address]~ TYPE AND SCRE AB SCREEN GEL NEGATIVE ML CBC W/DIFF, AUT NOTE [facility]Z CBC W/DIFF, AUT WBC 9.8 K/mm3 4.4-11.0 ML CBC W/DIFF, AUT RBC 4.38 M/mm3 4.2-5.4 ML CBC W/DIFF, AUT HGB 13.6 g/dL 12.0-15.0 ML CBC W/DIFF, AUT HCT 39.9 37-47 ML CBC W/DIFF, AUT MCV 91.1 fL 81-99 ML CBC W/DIFF, AUT MCH 31.1 pg 27.0-32.0 ML CBC W/DIFF, AUT MCHC 34.1 g/dL 32-36 ML CBC W/DIFF, AUT RDW CV 14.0 11.6-14.6 ML CBC W/DIFF, AUT RDW SD 46.7 fl 35.1-43.9 H ML CBC W/DIFF, AUT PLT 171 K/mm3 150-450 ML CBC W/DIFF, AUT MPV 11.6 fl 6.2-12.0 ML CBC W/DIFF, AUT NEUT% 75.3 47-70 H ML CBC W/DIFF, AUT LY% 12.4 19-41 L ML CBC W/DIFF, AUT MONO% 10.7 0-10 H ML CBC W/DIFF, AUT EO% 0.5 0-5 ML CBC W/DIFF, AUT BASO% 0.6 0-1 ML CBC W/DIFF, AUT IG% 0.500 0.0-0.9 ML IG% - Immature Granulocytes (promyelocytes, myelocytes and metamyelocytes) > 1% indicates that a LEFT SHIFT is Present. CBC W/DIFF, AUT ABSOLUTE NEUT 7.4 X10 3/uL 2.0-7.7 ML CBC W/DIFF, AUT ABSOLUTE LYMPH 1.21 X10 3/uL 0.83-4.51 ML CBC W/DIFF, AUT NUCLEATED RBC 0 0-5 ML BEDSIDE GLUCOSE NOTE [facility] BEDSIDE GLUCOSE FINGERSTICK GLU 102 mg/dL 70-110 POCL MANAGEMENT OF PATIENT CARE PER NURSING PROTOCOL LDH NOTE [facility]Z LDH LDH 158 U/L 84-246 ML COMPREHENSIVE M NOTE [facility] COMPREHENSIVE M GLU 88 mg/dL 74-106 ML Please note revised GLUCOSE reference range effective 08/28/2017. COMPREHENSIVE M BUN 12 mg/dL 7-18 ML COMPREHENSIVE M CREAT,SERUM 0.75 mg/dL 0.55-1.02 ML The validity of the calculated GFR GFRAA in patients over 70 years has not been determined. Clinical correlation is essential. COMPREHENSIVE M EST GFR 98 mL/min >60 ML Non- GFR Calc COMPREHENSIVE M EST GFR - AA 118 mL/min >60 ML GFR Calc COMPREHENSIVE M BUN/CRE 15.9 RATIO 10-20 ML COMPREHENSIVE M T PROT 6.3 g/dL 6.4-8.2 L ML COMPREHENSIVE M ALB 2.1 g/dL 3.2-5.0 L ML COMPREHENSIVE M GLOB 4.2 g/dL 2.2-4.2 ML COMPREHENSIVE M A/G 0.5 RATIO 0.9-2.4 L ML COMPREHENSIVE M CA,TOTAL 8.7 mg/dL 8.5-10.1 ML COMPREHENSIVE M AST 17 U/L 15-37 ML COMPREHENSIVE M ALK P 171 U/L 45-117 H ML COMPREHENSIVE M ALT 27 U/L 13-56 ML COMPREHENSIVE M T BILI 0.20 mg/dL 0.20-1.00 ML For patients on eltrombopag therapy, use of Dimension [place] TBIL is not recommended. COMPREHENSIVE M NA 140 mmol/L 136-145 ML COMPREHENSIVE M POTASSIUM 3.9 mmol/L 3.5-5.1 ML COMPREHENSIVE M CL 109 mmol/L 98-107 H ML COMPREHENSIVE M CO2 26.0 mmol/L 21.0-32.0 ML COMPREHENSIVE M GAP 5 5-15 ML CBC-COMPLETE BL NOTE [facility]ENZ CBC-COMPLETE BL WBC 6.1 K/mm3 4.4-11.0 ML CBC-COMPLETE BL RBC 4.08 M/mm3 4.2-5.4 L ML CBC-COMPLETE BL HGB 12.6 g/dL 12.0-15.0 ML CBC-COMPLETE BL HCT 38.3 37-47 ML CBC-COMPLETE BL MCV 93.9 fL 81-99 ML CBC-COMPLETE BL MCH 30.9 pg 27.0-32.0 ML CBC-COMPLETE BL MCHC 32.9 g/dL 32-36 ML CBC-COMPLETE BL RDW CV 13.9 11.6-14.6 ML CBC-COMPLETE BL RDW SD 47.2 fl 35.1-43.9 H ML CBC-COMPLETE BL PLT 181 K/mm3 150-450 ML CBC-COMPLETE BL MPV 12.2 fl 6.2-12.0 H ML RULE OUT BETA S NOTE [facility]ENZ MISCELLANEOUS L NOTE [facility]Z MISCELLANEOUS L MISC LAB TEST ML TEST RESULT LIMITS Bile Acids, Fractionated LCMS Ursodeoxycholic Acids <0.10 umol/L Reference Range: All Ages: <1.9 Cholic Acids 1.0 umol/L Reference Range: All Ages: <2.2 Chenodeoxycholic Acids 0.70 umol/L Reference Range: All Ages: <5.8 Deoxycholic Acids <0.10 umol/L Reference Range: All Ages: <3.3 Total Bile Acids 1.7 umol/L This test was developed and its performance characteristics determined by [facility]. It has not been cleared or approved by the Food and Drug Administration. Reference Range: All Ages: <9.2 TESTING PERFORMED AT [facility]. ORIGINAL REPORT ON FILE IN LAB CONTAINS ADDITIONAL TEST SITE INFORMATION. LIVER PROFILE NOTE [facility] LIVER PROFILE T PROT 6.7 g/dL 6.4-8.2 ML LIVER PROFILE ALB 2.3 g/dL 3.2-5.0 L ML LIVER PROFILE GLOB 4.4 g/dL 2.2-4.2 H ML LIVER PROFILE AST 39 U/L 15-37 H ML LIVER PROFILE ALK P 179 U/L 45-117 H ML LIVER PROFILE ALT 83 U/L 13-56 H ML LIVER PROFILE T BILI 0.40 mg/dL 0.20-1.00 ML For patients on eltrombopag therapy, use of Dimension [place] TBIL is not recommended. LIVER PROFILE D BILI 0.14 mg/dL 0.00-0.30 ML ENTERIC PATHOGE NOTE [facility]Z URIC ACID NOTE [facility] URIC ACID URIC 5.1 mg/dL 2.6-6.0 ML The drugs N-Acetylcysteine and Metamizole may falsely depress this assay. COMPREHENSIVE M NOTE [facility] COMPREHENSIVE M GLU 100 mg/dL 74-106 ML Fasting Glucose result from 100 to 125 mg/dL suggests IMPAIRED HOMEOSTASIS per A.D.A. criteria. Please note revised GLUCOSE reference range effective 08/28/2017. COMPREHENSIVE M BUN 6 mg/dL 7-18 L ML COMPREHENSIVE M CREAT,SERUM 0.61 mg/dL 0.55-1.02 ML The validity of the calculated GFR GFRAA in patients over 70 years has not been determined. Clinical correlation is essential. COMPREHENSIVE M EST GFR 125 mL/min >60 ML Non- GFR Calc COMPREHENSIVE M EST GFR - AA 151 mL/min >60 ML GFR Calc COMPREHENSIVE M BUN/CRE 9.9 RATIO 10-20 L ML COMPREHENSIVE M T PROT 6.5 g/dL 6.4-8.2 ML COMPREHENSIVE M ALB 2.3 g/dL 3.2-5.0 L ML COMPREHENSIVE M GLOB 4.2 g/dL 2.2-4.2 ML COMPREHENSIVE M A/G 0.5 RATIO 0.9-2.4 L ML COMPREHENSIVE M CA,TOTAL 8.3 mg/dL 8.5-10.1 L ML COMPREHENSIVE M AST 80 U/L 15-37 H ML COMPREHENSIVE M ALK P 161 U/L 45-117 H ML COMPREHENSIVE M ALT 114 U/L 13-56 H ML COMPREHENSIVE M T BILI 0.40 mg/dL 0.20-1.00 ML For patients on eltrombopag therapy, use of Dimension [place] TBIL is not recommended. COMPREHENSIVE M NA 139 mmol/L 136-145 ML COMPREHENSIVE M POTASSIUM 3.5 mmol/L 3.5-5.1 ML COMPREHENSIVE M CL 108 mmol/L 98-107 H ML COMPREHENSIVE M CO2 24.0 mmol/L 21.0-32.0 ML COMPREHENSIVE M GAP 7 5-15 ML URINALYSIS, COM NOTE [facility] URINALYSIS, COM WBC 0 SEEN /hpf 0-5 ML URINALYSIS, COM RBC 0 SEEN /hpf 0-5 ML URINALYSIS, COM EPI,SQUAMOUS 5-10 SEEN /hpf 5-10 ML URINALYSIS, COM BACTERIA 0 SEEN /hpf None Seen ML URINALYSIS, COM MUCUS 0 SEEN /hpf <or=2+ ML CBC-COMPLETE BL NOTE [facility]Z CBC-COMPLETE BL WBC 5.9 K/mm3 4.4-11.0 ML CBC-COMPLETE BL RBC 4.17 M/mm3 4.2-5.4 L ML CBC-COMPLETE BL HGB 12.7 g/dL 12.0-15.0 ML CBC-COMPLETE BL HCT 38.4 37-47 ML CBC-COMPLETE BL MCV 92.1 fL 81-99 ML CBC-COMPLETE BL MCH 30.5 pg 27.0-32.0 ML CBC-COMPLETE BL MCHC 33.1 g/dL 32-36 ML CBC-COMPLETE BL RDW CV 13.6 11.6-14.6 ML CBC-COMPLETE BL RDW SD 45.5 fl 35.1-43.9 H ML CBC-COMPLETE BL PLT 212 K/mm3 150-450 ML CBC-COMPLETE BL MPV 10.8 fl 6.2-12.0 ML CBC-COMPLETE BL NOTE [facility]Z CBC-COMPLETE BL WBC 9.3 K/mm3 4.4-11.0 ML CBC-COMPLETE BL RBC 3.92 M/mm3 4.2-5.4 L ML CBC-COMPLETE BL HGB 12.2 g/dL 12.0-15.0 ML CBC-COMPLETE BL HCT 37.5 37-47 ML CBC-COMPLETE BL MCV 95.7 fL 81-99 ML CBC-COMPLETE BL MCH 31.1 pg 27.0-32.0 ML CBC-COMPLETE BL MCHC 32.5 g/dL 32-36 ML CBC-COMPLETE BL RDW CV 13.4 11.6-14.6 ML CBC-COMPLETE BL RDW SD 47.0 fl 35.1-43.9 H ML CBC-COMPLETE BL PLT 224 K/mm3 150-450 ML CBC-COMPLETE BL MPV 10.4 fl 6.2-12.0 ML METHYLMALONIC A NOTE [facility] METHYLMALONIC A METHYLMAL ACID LCI TEST RESULT LIMITS Methylmalonic Acid, Serum 84 nmol/L 0-378 Disclaimer: This test was developed and its performance characteristics determined by [employer] [facility]. It has not been cleared or approved by the Food and Drug Administration. [email or web address]. ORIGINAL REPORT ON FILE IN LAB CONTAINS ADDITIONAL TEST SITE INFORMATION. HOMOCYSTEINE NOTE [facility]Z HOMOCYSTEINE HOMOCYSTEINE 5.0 umol/L 3.2-10.7 ML VITAMIN B12 NOTE [facility] VITAMIN B12 VITAMIN B12 641 pg/mL 211-911 ML GC-Chlamydia Chlamydia negative Negative GC-Chlamydia GC negative No Growth Initial OB Labs Blood Type O Initial OB Labs Rh Type POSITIVE Initial OB Labs Antibody Screen NEGATIVE Negative Initial OB Labs Hemoglobin Initial OB 12.4 Initial OB Labs Hematocrit Initial OB 36.6 Initial OB Labs PLT 239 Initial OB Labs Rubella NON-IMMUNE Immune Initial OB Labs VDRL NON-REACTIVE Non Reactive Initial OB Labs HBsAg NEGATIVE Negative HEP C - NEGATIVE HCG TITER QUANT NOTE [facility]Z HCG TITER QUANT HCG QUANT. 22 mIU/mL 1-3 H ML hCG levels with Gestational Age Gestational Age hCG mIU/mL (IU/L) 0.2 - 1 week 5 - 50 1-2 weeks 50 - 500 2-3 weeks 100 - 5000 3-4 weeks 500 - 20236 4-5 weeks 1000 - 43896 5-6 weeks 64583 - 100,000 6-8 weeks 50382 - 200,000 2-3 months 68957 - 100,000 *Negative results from patients with symptom onset beyond five days should be treated as presumptive and confirmed by a molecular assay if clinically necessary. Negative results should not be used as the sole basis for treatment or for patient management. COVID 19 AG RAPID (RN COLLECT) *Positive results do not differentiate between SARS-CoV and SARS-CoV-2. If differentation of the specific SARS virus is desired an additional sample and an additional order is required. COVID 19 AG RAPID (RN COLLECT) * This test has not been FDA cleared or approved; the test has been authorized by FDA under an Emergency Use Authorization (EAU) for use by laboratories certified under CLIA that meet the requirements to perform moderate, high, or waived complexity tests. COVID 19 AG RAPID (RN COLLECT) Normal Reference Range: Negative SARS-CoV-2 (COVID 19) Negative RAPID METHOD [employer] WAN O POSITIVE No Group B Beta Streptococcus isolated. Normal Reference Range = Not Detected Not detected for Campylobacter group, Salmonella species, Shigella species, Vibrio Group, Yersinia enterocolitica, EHEC (Shiga Toxin 1, Shiga Toxin 2), Norovirus Gl/Gll, and Rotavirus A. Other common stool pathogens are not detected on this panel include: Aeromonas/Plesiomonas or parasites. Order testing for these organisms separately if suspected. This is an amplified DNA test which makes it both specific and sensitive. CAMPYLOBACTER Not Detected Norovirus Not Detected Rotavirus Not Detected Salmonella Not Detected Shiga Toxin Not Detected Shigella sp. Not Detected VIBRIO Not Detected Yersinia Not Detected == ==== Impression /Plan: 40 wks + 4 days intrauterine in active labor. Preparations in progress for delivery.
--- NOTE | 2021-08-07 19:08 | EX.PCM.OBRPT ---
Maternal Data Information Final AYAAN: 08/03/21 Final AYAAN Source: [place] <20 weeks Gestational age: 40 weeks 4 days gestation Vaginal Delivery Maternal Presentation Maternal Presentation: Active Labor Operative Information Date of Procedure: 08/07/21 Pre-Operative Diagnosis: IUP Post-Operative Diagnosis: IUP Surgery / Procedure Performed: Spontaneous Vaginal Delivery Type of Anesthesia: Epidural Estimated Blood Loss: 350 cc Fluids Replaced: Crystalloid Findings Description of Procedure: Spontaneous vaginal delivery of a viable male with Apgars of 8/9 from an occiput anterior presentation with clear amniotic fluid and normal three-vessel placenta. No episiotomy. First-degree midline laceration repaired with 3-0 Rapide suture under epidural. Sponges okay. Delivery physician: Doroteo Gilmore MD. Presentation: Vertex Amniotic Fluid Description: Clear Placental Delivery Description: Spontaneous Placenta Disposition: [facility] Cord Vessel Description: 3 Vessels Cord Entanglement: None A Gender: Male (1 minute): 8 (5 minute): 9 Post Vaginal Delivery Medications Given After Delivery: IV Pitocin Episiotomy Description: None Laceration: Midline and 1st degree Complication Complications: None
[2021-08-07 20:00] LABS: Bedside Glucose 87 mg/dL (70-110)
[2021-08-08] MEDS: Acetaminophen 500 MG Tablet 1000 MG PO (03:06)
[2021-08-08 03:18] VITALS: BP 112/61; PULSE 72; RESP 18; TEMP 37.3
[2021-08-08 06:25] LABS: Bedside Glucose 89 mg/dL (70-110)
--- NOTE | 2021-08-08 08:17 | PCM.PN.OB ---
Subjective Subjective No overnight complaints Objective Data Objective Data Vital Signs: Vital Signs Temp Pulse Resp BP Pulse Ox 99.1 F 72 18 112/61 97 08/08/21 03:18 08/08/21 03:18 08/08/21 03:18 08/08/21 03:18 08/07/21 19:02 Oxygen Delivery Method Room Air Weight: 203 lb 14.841 oz Body Mass Index (BMI) 32.9 Intake & Output: Intake and Output for Last 24 Hours 08/06/21 08/07/21 08/08/21 23:59 23:59 23:59 Intake Total 3321.66 / 3321.66 Output Total 450 / 450 1000 / 1000 Balance 2871.66 / 2871.66 -1000 / -1000 Lab / Micro Data Result Diagrams: 08/07/21 06:00 Labs: Laboratory Results - last 24 hr 08/07/21 10:59: POC Glucose 89 08/07/21 12:03: POC Glucose 90 08/07/21 13:32: POC Glucose 81 08/07/21 15:15: POC Glucose 86 08/07/21 16:44: POC Glucose 75 08/07/21 19:14: POC Glucose 87 08/08/21 06:15: POC Glucose 89 Micro: Microbiology 08/07/21 06:20 Nasal Secretion SARS-CoV-2 Antigen (Rapid) - Final Physical Exam Const alert, oriented x3, no apparent distress, average body habitus, healthy appearing and well nourished HEENT normocephalic and moist oral mucous membranes Head and Scalp: atraumatic Face and Sinus: normal facial exam Eyes PERRL Neck full ROM Resp normal respiratory effort, no retractions and no use of accessory muscles GI GI Narrative: Soft, nontender, uterus firm and below umbilicus Extremity normal to inspection, full ROM and no clubbing, cyanosis or edema Psych mental status grossly normal, affect normal, speech normal and activity/motor behavior normal Assessment & Plan (1) Vaginal delivery: PLAN: day 1. Breast-feeding. Pain well controlled. Likely home tomorrow
[2021-08-08 08:24] VITALS: BP 126/52; PULSE 67; RESP 16; TEMP 36.8
[2021-08-08 12:59] VITALS: BP 124/70; PULSE 61; RESP 16; TEMP 36.3
[2021-08-08 16:30] VITALS: BP 120/70; PULSE 69; RESP 16; TEMP 36.7
== END 2021-08-08 19:30 | disposition home or self-care (01) | DRG 807 ==
LOC: WPOUT 05:52 → WP 05:52
PROVIDERS: Admitting Provider Obstetrics & Gynecology; Visit Provider Obstetrics & Gynecology
DX: O70.0 First degree perineal laceration during delivery (principal); Z37.0 Single live birth; Z3A.40 40 weeks gestation of pregnancy
CPT/HCPCS: 59025; 59050; 82962; 85025; 86850; 86900; 86901; 87426; 99218; J7120; G0378

== ENCOUNTER → 2023-08-03 | Outpatient (CLI) | payer BC, SELFPAY ==
--- OUTSIDE RECORDS SUMMARY | 2023-08-03 07:25 | XMS RPT_ITS | CCD ---
Author Name Unknown Address [email or web address] [place] [address] Organization [facility] Care Team Providers Care Contract Technician Name Role Phone Ann Reyes DO Primary Care Provider ANN REYES Primary Care Unavailab JENNIFER Vyas Attending Unavailable AMY, ANN NAVARRO Primary Care Unavailab le PLOTTSSUZANNE Referring Unavailable WISWELL, TD Attending Unavailable AMY, ANN NAVARRO Primary Care Unavailab le PLOTSUZANNE MYERS Attending Unavailable ANN REYES Primary Care Unavailab le PLOTTS, SUZANNE Referring Unavailable AMYANN Primary Care Unavailab le PLOTTSSUZANNE Attending Unavailable AMY, ANN NAVARRO Primary Care Unavailab le BAGLEYJENNIFER Attending Unavailable AMY, ANN NAVARRO Primary Care Unavailab le AMYANN Primary Care Unavailab le PLOTTS, SUZANNE Referring Unavailable JENNIFER BAGLEY Attending Unavailable ANN REYES Primary Care Unavailab le PLOTTSSUZANNE Referring Unavailable Medications Completed/Discontinued Medications Medication Drug Class(es) Dates Sig (Normalized) Sig (Original) VIT 27-[id number] ORAL (10 sources) VIT 43-[id number] ORAL Take by mouth. 0 Active Problems Active Problems Problem Classification Problem Date Documented Date Episodic/Chronic Other complications of (14 sources) History of delivery of macrosomal infant; Translations: [Supervision of with other poor reproductive or obstetric history, unspecified trimester] Onset: 03-19-2023 03-19-2023 Episodic Other complications of (1 source) ; Translations: [ with inconclusive viability, not applicable or unspecified] 03-31-2023 Episodic Other complications of (7 sources) Rubella non-immune; Translations: [Supervision of other high risk pregnancies, unspecified trimester] Onset: 04-29-2023 04-29-2023 Episodic Other complications of (1 source) High risk ; Translations: [Supervision of other high risk pregnancies, second trimester] 06-08-2023 Episodic Other complications of (1 source) Supervision of other high risk pregnancies, unspecified trimester; Translations: [Rubella non-immune status, antepartum] Onset: 04-29-2023 Episodic Other complications of (1 source) Supervision of other high risk pregnancies, second trimester; Translations: [Supervision of other high risk pregnancies, second trimester] Onset: 06-08-2023 Episodic Other and delivery including normal (20 sources) Early stage of ; Translations: [Encounter for supervision of normal , unspecified, unspecified trimester] Onset: 03-19-2023 03-05-2023 Episodic Other screening for suspected conditions (not mental disorders or infectious disease) (4 sources) Patient encounter status; Translations: [Encounter for other specified screening] Onset: 07-06-2023 06-08-2023 Episodic Residual codes; unclassified (14 sources) History of gestational hypertension; Translations: [Personal history of other complications of , childbirth and the puerperium] Onset: 03-19-2023 03-19-2023 Episodic Residual codes; unclassified (2 sources) Gestation period, 9 weeks; Translations: [9 weeks gestation of ] 03-31-2023 Episodic Residual codes; unclassified (1 source) Gestation period, 13 weeks; Translations: [13 weeks gestation of ] 04-27-2023 Episodic Residual codes; unclassified (1 source) Gestation period, 17 weeks; Translations: [17 weeks gestation of ] 05-25-2023 Episodic Residual codes; unclassified (1 source) Gestation period, 19 weeks; Translations: [19 weeks gestation of ] 06-08-2023 Episodic Residual codes; unclassified (2 sources) Gestation period, 23 weeks; Translations: [23 weeks gestation of ] 07-06-2023 Episodic Residual codes; unclassified (1 source) 19 weeks gestation of ; Translations: [19 weeks gestation of ] Onset: 06-08-2023 Episodic Residual codes; unclassified (1 source) 9 weeks gestation of ; Translations: [9 weeks gestation of ] Onset: 04-27-2023 Episodic Unclassified (1 source) Rubella non-immune status, antepartum; Translations: [Rubella non-immune status, antepartum] Onset: 04-29-2023 Past or Other Problems Problem Classification Problem Date Documented Date Episodic/Chronic Other complications of (1 source) Supervision of with other poor reproductive or obstetric history, unspecified trimester; Translations: [H/O macrosomia in infant in prior , currently ] Onset: 03-19-2023 Episodic Other complications of (1 source) with inconclusive viability, not applicable or unspecified; Translations: [ with inconclusive viability, single or unspecified fetus] Onset: 03-31-2023 Episodic Residual codes; unclassified (11 sources) FH: Congenital heart disease; Translations: [Family history of other congenital malformations, deformations and chromosomal abnormalities] Onset: 03-19-2023 03-19-2023 Episodic Residual codes; unclassified (1 source) Personal history of other complications of , childbirth and the puerperium; Translations: [History of gestational hypertension] Onset: 03-19-2023 Episodic Results Test Name Value Interpretation Reference Range Facil ity Vital Signs Date Time Vital Sign Value Performing Clinician Carl del cid 07-06-2023 14:58-0500 Body weight 89.54 kg Jennifer Bagley APRN.CNM Work Phone: [facility] 07-06-2023 14:58-0500 Diastolic blood pressure 64 mm[Hg] Jennifer Bagley APRN.CNM Work Phone: [facility] 07-06-2023 14:58-0500 Systolic blood pressure 110 mm[Hg] Jennifer Bagley APRN.CNM Work Phone: [facility] 06-08-2023 13:56-0500 Body weight 88 kg Jennifer Bagley APRN.CNM Work Phone: [facility] 06-08-2023 13:56-0500 Diastolic blood pressure 62 mm[Hg] Jennifer Bagley APRN.CNM Work Phone: [facility] 06-08-2023 13:56-0500 Systolic blood pressure 110 mm[Hg] Jennifer Bagley QUANTITATIVE DEVELOPER.CNM Work Phone: [facility] 05-25-2023 13:37-0400 Body weight 87.09 kg Jennifer Bagley QUANTITATIVE DEVELOPER.CNM Work Phone: [facility] 05-25-2023 13:37-0400 Diastolic blood pressure 66 mm[Hg] Jennifer Bagley QUANTITATIVE DEVELOPER.CNM Work Phone: [facility] 05-25-2023 13:37-0400 Systolic blood pressure 110 mm[Hg] Jennifer Bagley QUANTITATIVE DEVELOPER.CNM Work Phone: [facility] 04-27-2023 09:50-0400 Body weight 84.55 kg Td Gleason MD Work Phone: [facility] 04-27-2023 09:50-0400 Diastolic blood pressure 62 mm[Hg] Td Gleason MD Work Phone: [facility] 04-27-2023 09:50-0400 Systolic blood pressure 106 mm[Hg] Td Gleason MD Work Phone: [facility] 03-31-2023 13:08-0400 Body height 167.6 cm Suzanne Plotchung QUANTITATIVE DEVELOPER.CNM Work Phone: [facility] 03-31-2023 13:08-0400 Body weight 82.1 kg Suzanne Mathias QUANTITATIVE DEVELOPER.CNM Work Phone: [facility] 03-31-2023 13:08-0400 Diastolic blood pressure 60 mm[Hg] Suzanne Plotts QUANTITATIVE DEVELOPER.CNM Work Phone: [facility] 03-31-2023 13:08-0400 Systolic blood pressure 118 mm[Hg] Suzanne Plotts QUANTITATIVE DEVELOPER.CNM Work Phone: [facility] Encounters Encounter Date Encounter Type Care Provider Facility Start: 07-06-2023 End: 07-06-2023 ambulatory JENNIFER BAGLEY Facility:[facility] Start: 07-06-2023 End: 07-06-2023 Patient encounter procedure Jennifer Bagley QUANTITATIVE DEVELOPER.CNM Work Phone: OB/Gynecology Procedures Date Procedure Procedure Detail Performing Clinician Start: 07-06-2023 Us preg uterus after 1st trimest 07/27 gestation Suzanne Mathias APRN.CNM Work Phone: Start: 07-06-2023 URINE OB DIP B/O Jessic a Bagley QUANTITATIVE DEVELOPER.CNM Work Phone: Start: 06-08-2023 Us preg uterus after 1st trimest 07/27 gestation Suzanne Mathias QUANTITATIVE DEVELOPER.CNM Work Phone: Start: 05-25-2023 URINE OB DIP B/O Jessic a Bagley QUANTITATIVE DEVELOPER.CNM Work Phone: Start: 04-27-2023 Antibody screen ELLIOTT REYES Plan of Treatment Date Care Activity Detail Author Start: 07-06-2023 End: 10-05-2023 CBC W Auto Differential panel - Blood CBC + DIFF Lab Routine 23 weeks gestation of Encounter for supervision of normal in multigravida Expected: 07/06/2023, Expires: 10/05/2023 [facility] Work Phone: Immunizations Immunization Date Immunization Notes Care Provider Allyn gibbons 03-06-2006 Meningococcal, MCV4, unspecified conjugate formulation(groups A, C, Y and W-135) Suzanne Mathias APRN.KAITLYNN Work Phone: [facility] 03-06-2006 tetanus toxoid, redu lara diphtheria toxoid, and acellular pertussis vaccine, adsorbed Suzanne Mathias APRN.ANNIEM Work Phone: [facility] 04-15-1999 diphtheria, tetanus toxoids and acellular pertussis vaccine Suzanne Mathias QUANTITATIVE DEVELOPER.KAITLYNN Work Phone: [facility] Work Phone: 04-15-1999 measles, mumps and rubella virus vaccine Suzanne Mathias QUANTITATIVE DEVELOPER.KAITLYNN Work Phone: [facility] Work Phone: 04-15-1999 trivalent poliovirus vaccine, live, oral Suzanne Plotts QUANTITATIVE DEVELOPER.CNM Work Phone: [facility] Work Phone: 07-10-1995 diphtheria, tetanus toxoids and acellular pertussis vaccine Suzanne Plotts QUANTITATIVE DEVELOPER.CNM Work Phone: [facility] Work Phone: 07-10-1995 haemophilus influenz ae type b vaccine, HbOC conjugate Suzanne Plotts QUANTITATIVE DEVELOPER.CNM Work Phone: [facility] Work Phone: 07-10-1995 measles, mumps and rubella virus vaccine Suzanne Plotts QUANTITATIVE DEVELOPER.CNM Work Phone: [facility] Work Phone: 1994 DTP-Haemophilus influenzae type b conjugate vaccine Suzanne Plotts QUANTITATIVE DEVELOPER.CNM Work Phone: [facility] Work Phone: 1994 hepatitis B vaccine, pediatric or pediatric/adolescent dosage Suzanne Plotts QUANTITATIVE DEVELOPER.CNM Work Phone: [facility] Work Phone: 1994 trivalent poliovirus vaccine, live, oral Suzanne Plotts QUANTITATIVE DEVELOPER.CNM Work Phone: [facility] Work Phone: 1994 DTP-Haemophilus influenzae type b conjugate vaccine Suzanne Plotts QUANTITATIVE DEVELOPER.CNM Work Phone: [facility] Work Phone: 1994 trivalent poliovirus vaccine, live, oral Suzanne Plotts QUANTITATIVE DEVELOPER.CNM Work Phone: [facility] Work Phone: 1994 diphtheria, tetanus toxoids and pertussis vaccine Suzanne Plotts QUANTITATIVE DEVELOPER.CNM Work Phone: [facility] Work Phone: 1994 haemophilus influenz ae type b vaccine, HbOC conjugate Suzanne Plotts QUANTITATIVE DEVELOPER.CNM Work Phone: [facility] Work Phone: 1994 trivalent poliovirus vaccine, live, oral Suzanne Mathias QUANTITATIVE DEVELOPER.CNM Work Phone: [facility] Work Phone: 1994 hepatitis B vaccine, pediatric or pediatric/adolescent dosage Suzanne Plotts QUANTITATIVE DEVELOPER.CNM Work Phone: [facility] Work Phone: 1994 hepatitis B vaccine, pediatric or pediatric/adolescent dosage Suzanne Plotts QUANTITATIVE DEVELOPER.CNM Work Phone: [facility] Work Phone: Payers Date Payer Category Payer Unknown [employer] F[employer] PPO [id number] 2017-Present [phone] [address] [place] [address] PPO [id number] 2017 Unknown [id number] Social History Date Type Detail Facility Start: 09-19-2019 End: 03-31-2023 Tobacco smoking status NHIS Never smoked tobacco [facility] Work Phone: Start: 09-19-2019 End: 03-31-2023 Tobacco use and exposure Smokeless tobacco non-user [facility] Work Phone: Start: 09-19-2019 Alcohol intake Current drinke r of alcohol (finding) [facility] Start: 09-19-2019 End: 06-08-2023 History of Social function [facility] Start: 09-19-2019 End: 06-08-2023 Tobacco use panel [facility] National Score (1-100), lower number is lower risk Not on file [facility] Start: 09-19-2019 [facility] Start: 1995 Sex Assigned At Not on file [facility] Start: 03-19-2023 End: 07-06-2023 Alcohol intake Ex-drinker (finding) [facility] Start: 03-19-2023 Education 15 [facility] Start: 02-05-2023 [facility] Goals Date Patient Goal Desired Activity /State Personal health goal Clinical Notes 06-19-2014 to 07-06-2023 Quick Notes - Jennifer Bagley APRN.CNM - 07/06/2023 3:04 PM ESTPatient InstructionsTelephone Encounter - MeySuzanne APRN.CNM - 06/10/2023 5:06 PM ESTPatient Instructions Note Date & Type Note Facility 07-06-2023 Miscellaneous Notes KRISTIE-S: Minh Valencia is a 28 year old female who presents at 10/29/2023, by Last Menstrual Periodfor a routine visit. Good FM. Denies headache, visual changes, chest pain, shortness of breath, vaginal bleeding, leakage of fluid, or dysuria. Feeling well, no complaints. Verbalizing concerns that baby is in breech position during US. Expressing desire for no further US in future unless absolutely necessary. O: See flow sheet Gen: No apparent distress Abd: Gravid, nontender TWG 19.6 lb S=D Repeat US today for views ASSESSMENT: 1. 23 weeks gestation of - 2. Encounter for supervision of normal in multigravida - 3. History of gestational hypertension - 4. H/O macrosomia in infant in prior , currently Plan: 1) PTL/ Preeclampsia precautions reviewed and when to call 2) RTO in 4 weeks 3) Fresh test at [facility], lab slip given for 28 wk labs 4) Baby was in breech position during US. Pt will begin Daily Activities per [facility]. 5) Would like to avoid future US if possible. Will follow up with recommendations after final report. GEN Leiva TEACHING FITNESS AND WELLNESS MANAGER NOTE OF PERSONAL INVOLVEMENT IN CARE: I have interviewed the patient and updated the midwifery student's PFS history, and ROS as necessary. I have re-performed the HPI, Physical Examination, Assessment and Plan. Jennifer Bagley APRN.CNM documented in this encounter [facility] 07-06-2023 Instructions Shane Vela Cma - 07/06/2023 3:01 PM EST SEQUENTIAL SCREENINGS The [facility] offers sequential screenings for women who are interested in screenings for chromosomal abnormalities and certain defects during a . The sequential screen combines ultrasound and blood tests to determine the risk of chromosomal abnormalities, including Down's Syndrome (Trisomy 21) and Trisomy 18, as well as open neural tube defects including spina bifida. Ultrasound examination is performed between 11 weeks and 13 weeks gestational age. Blood tests are drawn after the ultrasound and again later in the between 15 and 21 weeks gestational age. Please let your physician know if you are interested in this testing. It will require an appointment with our water and fire technician. This is not an ultrasound performed by a physician in our office during a routine visit. SIGNS AND SYMPTOMS OF LABOR 1. Contractions every 10 minutes or more often 2. Clear, pink, or brownish fluid (water) leaking from vagina 3. Feeling that baby is pushing down, pressure 4. Low, dull backache 5. Cramps that feel like a period 6. Cramps with or without diarrhea If you notice any of the above symptoms, contact our office at [phone] and ask to speak with a nurse. After hours, you can call doctors registry at [phone] OR call [facility] at [phone] and ask to have the doctor registered radiation therapist paged. If you consider this an emergency, dial 6-5-3 or go to your nearest emergency department. NEED HELP? Are you dealing with a violent or abusive relationship? Are you a victim of rape or sexual assult? Call [facility] ([place]) 24 hour Crisis Hotline: 448.392.9554 or 164-288-3233. MANUAL Your Guide to a Healthy manual is now on-line. Visit [email or web address] to download your free copy documented in this encounter [facility] 06-10-2023 Miscellaneous Notes Order signed. Thank you! Suzanne Mathias APRN.CNM Patient notified and voiced understanding. Follow up ultrasound scheduled. Please file pended order. Order will need to be attached to upcoming appointment. Fouzia Martinez RN ----- Message from Suzanne Mathias APRN.CNM sent at 06/10/2023 4:35 PM EST ----- Anatomy US reviewed. Some suboptimal views. Repeat 2-4 weeks. Suzanne Mathias APRN.CNM documented in this encounter [facility] 06-08-2023 Miscellaneous Notes KRISTIE-S: Minh Valencia is a 28 year old female who presents at 19w4d with AYAAN:10/29/2023, by Last Menstrual Period for a routine visit. Good FM. Denies headache, visual changes, chest pain, shortness of breath, vaginal bleeding, leakage of fluid, or dysuria. Feeling well, no complaints. O: See flow sheet Gen: No apparent distress Abd: Gravid, nontender A: ASSESSMENT/PLAN: 1. with care elsewhere, antepartum 2. H/O macrosomia in infant in prior , currently 3. Rubella non-immune status, antepartum 4. Supervision of other high risk pregnancies, second trimester 5. History of gestational hypertension P: 1) PTL precautions reviewed and when to call 2) RTO in 4 weeks 3) Declines ASA 4) Anatomy US today Jennifer Bagley APRN.CNM documented in this encounter [facility] 05-25-2023 Miscellaneous Notes KRISTIE-S: Minh Valencia is a 28 year old female who presents at 17w4d with AYAAN:10/29/2023, by Last Menstrual Period for a routine visit. Good FM. Denies headache, visual changes, chest pain, shortness of breath, vaginal bleeding, leakage of fluid, or dysuria. Feeling well, no complaints. O: See flow sheet Gen: No apparent distress Abd: Gravid, nontender ASSESSMENT/PLAN: 1. Encounter for supervision of normal in multigravida 2. 17 weeks gestation of P: 1) PTL precautions reviewed and when to call 2) RTO in 4 weeks 3) Declines aneuploidy screening 4) Recommend ASA due to history of GHTN, she declines and voiced understanding. 5) Anatomy US ordered Jennifer Bagley APRN.CNM documented in this encounter [facility] 05-25-2023 Instructions Shane Vela Cma 05/25/2023 1:31 PM EDT SEQUENTIAL SCREENINGS The [facility] offers sequential screenings for women who are interested in screenings for chromosomal abnormalities and certain defects during a . The sequential screen combines ultrasound and blood tests to determine the risk of chromosomal abnormalities, including Down's Syndrome (Trisomy 21) and Trisomy 18, as well as open neural tube defects including spina bifida. Ultrasound examination is performed between 11 weeks and 13 weeks gestational age. Blood tests are drawn after the ultrasound and again later in the between 15 and 21 weeks gestational age. Please let your physician know if you are interested in this testing. It will require an appointment with our water and fire technician. This is not an ultrasound performed by a physician in our office during a routine visit. SIGNS AND SYMPTOMS OF LABOR 1. Contractions every 10 minutes or more often 2. Clear, pink, or brownish fluid (water) leaking from vagina 3. Feeling that baby is pushing down, pressure 4. Low, dull backache 5. Cramps that feel like a period 6. Cramps with or without diarrhea If you notice any of the above symptoms, contact our office at [phone] and ask to speak with a nurse. After hours, you can call doctors registry at [phone] OR call [facility] at [phone] and ask to have the doctor registered radiation therapist paged. If you consider this an emergency, dial 9--1 or go to your nearest emergency department. NEED HELP? Are you dealing with a violent or abusive relationship? Are you a victim of rape or sexual assult? Call [facility] ([place]) 24 hour Crisis Hotline: 430.333.1803 or 480-924-5428. MANUAL Your Guide to a Healthy manual is now on-line. Visit [email or web address] to download your free copy documented in this encounter [facility] 04-27-2023 Miscellaneous Notes SW- Some MSK pain. No pain, vb, lof. Reviewed diet and exercise in . NOB labs today. Declines aneuploidy and carrier screening. Schedule anatomy US. RTO 4 wks. Td Gleason DO documented in this encounter [facility] 04-27-2023 Instructions Nguyen Lozada MA - 04/27/2023 9:46 AM EDT SEQUENTIAL SCREENINGS The [facility] offers sequential screenings for women who are interested in screenings for chromosomal abnormalities and certain defects during a . The sequential screen combines ultrasound and blood tests to determine the risk of chromosomal abnormalities, including Down's Syndrome (Trisomy 21) and Trisomy 18, as well as open neural tube defects including spina bifida. Ultrasound examination is performed between 11 weeks and 13 weeks gestational age. Blood tests are drawn after the ultrasound and again later in the between 15 and 21 weeks gestational age. Please let your physician know if you are interested in this testing. It will require an appointment with our water and fire technician. This is not an ultrasound performed by a physician in our office during a routine visit. SIGNS AND SYMPTOMS OF LABOR 1. Contractions every 10 minutes or more often 2. Clear, pink, or brownish fluid (water) leaking from vagina 3. Feeling that baby is pushing down, pressure 4. Low, dull backache 5. Cramps that feel like a period 6. Cramps with or without diarrhea If you notice any of the above symptoms, contact our office at [phone] and ask to speak with a nurse. After hours, you can call doctors registry at [phone] OR call [facility] at [phone] and ask to have the doctor registered radiation therapist paged. If you consider this an emergency, dial [phone]- or go to your nearest emergency department. NEED HELP? Are you dealing with a violent or abusive relationship? Are you a victim of rape or sexual assult? Call [facility] ([place]) 24 hour Crisis Hotline: 721.904.5001 or 796-333-5454. MANUAL Your Guide to a Healthy manual is now on-line. Visit [email or web address] to download your free copy documented in this encounter [facility] 03-31-2023 Note HNO ID: [id number] Author: Suzanne Mathias APRN.CNM Service: ? Author Type: Filter Washer Type: Progress Notes Filed: 03/31/2023 5:02 PM Note Text: OB point of care ultrasound was performed. See imaging tab for details. Suzanne Mathias APRN.CNM [facility] 03-31-2023 History of Presen t illness Narrative OB point of care ultrasound was performed. See imaging tab for details. Suzanne Mathias APRN.CNM documented in this encounter [facility] 03-31-2023 Miscellaneous Notes Patient is a at 9.5 weeks gestation for NOB. See progress note. Suzanne Mathias APRN.CNM documented in this encounter [facility] 03-31-2023 Note HNO ID: [id number] Author: Suzanne Mathias APRN.CNM Service: ? Author Type: Filter Washer Type: Progress Notes Filed: 03/31/2023 3:48 PM Note Text: INITIAL OB ASSESSMENT OB Provider: Suzanne Mathias APRN CNM HPI: Minh is a 28 year old White here to establish Obstetrical Care. Patient's last menstrual period was 01/22/2023 (exact date). from OB Dating Form. Cycles regular was planned Complaints: insomnia, some nausea, and migraine x 2 OB History T3 L2 SAB0 IAB0 Ectopic0 Multiple0 Live Births2 Previous history: Prior : never History of 4th degree laceration: No History of shoulder dystocia: No History of Hypertensive disorders including pre-eclampsia, chronic hypertension or gestational hypertension: No History of gestational diabetes: No Patient's Risk Screening for delivery: Have you had a prior barriga between 20w and 36w6d?: No MEDICAL/PSYCHOSOCIAL HISTORY: History of hemorrhage or bleeding concerns: No Thyroid Disease: No History of chronic hypertension: No History of pre-existing diabetes: No No results found for: ABORHD No weight on file for this encounter. History of abnormal pap: No Prior treatment for cervical dysplasia: none. 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 I don't have enough money to pay my bills: Never Within the past 12 months, have you worried that your food would run out before you had money to buy more: Never In the past 12 months, has lack of reliable transportation kept you from going to medical appointments or work, or from keeping things needed for daily living: Never In the past 12 months, have you had any concerns about having a place to live, or about the condition or quality of your housing: Never Are there any cultural or spiritual needs we should be aware of: No Depression: denies symptoms of depression. 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 No current facility-administered medications for this visit. Allergies As of Date: 03/31/2023 (No Known Allergies) Fully Assessed 03/19/2023 Does patient have penicillin allergy: No REVIEW OF SYSTEMS: GENERAL: Negative for: Fever or Chills and Positive for: Fatigue HEENT: Negative for: Headache, Impaired Vision, Ringing in Ears, Nosebleeds NECK: Negative for: Swelling, Pain, Stiffness RESPIRATORY: Negative for: Cough, Shortness of breath, Wheezing GASTROINTESTINAL: Negative for: Heartburn, Constipation, Diarrhea, Blood in stool, Vomiting MUSCULOSKELETAL: Negative for: Muscle or joint pain, stiffness, Joint swelling NEUROLOGIC/PSYCHIATRIC: Negative for: Weakness, Paralysis, Numbness, Tingling, Tremor, Anxiety, Depression, Memory loss SKIN: Negative for: Rash, Itching GENITOURINARY: Negative for: vaginal itching, vaginal discharge, hematuria or dysuria PHYSICAL EXAM: BP 118/60 Ht 5' 6 (1.68m) Wt 181 lb (82.1kg) LMP 01/22/2023 BMI 29.23 kg/(m2). GENERAL: pleasant in no apparent distress DERMATOLOGY: Normal and without lesions NECK: Supple and full range of motion CHEST: Normal inspiratory effort BREAST: soft, non-tender, symmetric, no dominant mass, normal nipple-areolar complex, no lymphadenopathy, and no nipple discharge ABDOMEN: soft, non-tender, and no masses NEURO: alert and oriented x3,exam grossly non-focal PELVIS: External genitalia normal without lesions. Perineal body intact. No vaginal or cervical lesions. Cervix closed. [place] (more content not included)... [facility] 03-31-2023 History of Presen t illness Narrative INITIAL OB ASSESSMENT OB Provider: Suaznne Mathias APRN CNM HPI: Minh is a 28 year old White here to establish Obstetrical Care. Patient's last menstrual period was 01/22/2023 (exact date). from OB Dating Form. Cycles regular was planned Complaints: insomnia, some nausea, and migraine x 2 OB History T3 L2 SAB0 IAB0 Ectopic0 Multiple0 Live Births2 Previous history: Prior : never History of 4th degree laceration: No History of shoulder dystocia: No History of Hypertensive disorders including pre-eclampsia, chronic hypertension or gestational hypertension: No History of gestational diabetes: No Patient's Risk Screening for delivery: Have you had a prior barriga between 20w and 36w6d?: No MEDICAL/PSYCHOSOCIAL HISTORY: History of hemorrhage or bleeding concerns: No Thyroid Disease: No History of chronic hypertension: No History of pre-existing diabetes: No No results found for: ABORHD No weight on file for this encounter. History of abnormal pap: No Prior treatment for cervical dysplasia: none. 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 I don't have enough money to pay my bills: Never Within the past 12 months, have you worried that your food would run out before you had money to buy more: Never In the past 12 months, has lack of reliable transportation kept you from going to medical appointments or work, or from keeping things needed for daily living: Never In the past 12 months, have you had any concerns about having a place to live, or about the condition or quality of your housing: Never Are there any cultural or spiritual needs we should be aware of: No Depression: denies symptoms of depression. 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 No current facility-administered medications for this visit. Allergies As of Date: 03/31/2023 (No Known Allergies) Fully Assessed 03/19/2023 Does patient have penicillin allergy: No REVIEW OF SYSTEMS: GENERAL: Negative for: Fever or Chills and Positive for: Fatigue HEENT: Negative for: Headache, Impaired Vision, Ringing in Ears, Nosebleeds NECK: Negative for: Swelling, Pain, Stiffness RESPIRATORY: Negative for: Cough, Shortness of breath, Wheezing GASTROINTESTINAL: Negative for: Heartburn, Constipation, Diarrhea, Blood in stool, Vomiting MUSCULOSKELETAL: Negative for: Muscle or joint pain, stiffness, Joint swelling NEUROLOGIC/PSYCHIATRIC: Negative for: Weakness, Paralysis, Numbness, Tingling, Tremor, Anxiety, Depression, Memory loss SKIN: Negative for: Rash, Itching GENITOURINARY: Negative for: vaginal itching, vaginal discharge, hematuria or dysuria PHYSICAL EXAM: BP 118/60 Ht 5' 6 (1.68m) Wt 181 lb (82.1kg) LMP 01/22/2023 BMI 29.23 kg/(m^2). GENERAL: pleasant in no apparent distress DERMATOLOGY: Normal and without lesions NECK: Supple and full range of motion CHEST: Normal inspiratory effort BREAST: soft, non-tender, symmetric, no dominant mass, normal nipple-areolar complex, no lymphadenopathy, and no nipple discharge ABDOMEN: soft, non-tender, and no masses NEURO: alert and oriented x3,exam grossly non-focal PELVIS: External genitalia normal without lesions. Perineal body intact. No vaginal or cervical lesions. Cervix closed. Uterus 10 week size. No adnexal masses or tenderness. Clinical Pelvimetry: Pelvimetry clinically assessed as adequate Limited OB ultrasound exam: single intrauterine , positive cardiac activity, and crown-rump length 9.5 OB Risk Screening: Completed, no positive findings documented. ASSESSMENT/PLAN: 1. Encounter for supervision of normal in multigravida - ICD9: V22.1, ICD10: Z34.80 (primary diagnosis) 2. 9 weeks gestation of - ICD9: V22.2, ICD10: Z3A.09 3. History of gestational hypertension - ICD9: V13.29, ICD10: Z87.59 4. H/O macrosomia in in prior , currently - ICD9: V23.49, ICD10: O09.299 PLAN: 1) Patient oriented to practice. Patient given new OB orientation folder. Discussed gestational weight gain guidelines. Discussed routine OB labs including STD/HIV. Discussed how to access Your guide to a health and the [employer] Portal Developer. Discussed aneuploidy and carrier screening. Regarding aneuploidy screening, nuchal translucency/first trimester early anatomy ultrasound and NIPT were discussed. Regarding carrier screening, the myriad screen was discussed. The risks/benefits and limitations of NIPT/aneuploidy screening were reviewed including the potential for false negative and false positive results. We discussed the availability of professional-society guided carrier screening and reviewed the conditions screened and limitations of screening. The availability of genetic counseling was reviewed. Information on aneuploidy/carrier screening was provided. The patient chooses: Aneuploidy screening: declines screening and Carrier screening: Declines Reviewed midwifery and topology professor services that are available. Follow up in 4 weeks or sooner prn. Suzanne Mathias APRN.CNM documented in this encounter [facility] 03-31-2023 Instructions Shane Vela Cma - 03/31/2023 12:59 PM EDT Please select the following link to access the [facility] Your Guide to a Healthy . [email or web address] documented in this encounter [facility] 03-19-2023 Miscellaneous Notes DISTANCE HEALTH VISIT This Team Access Model visit is a phone encounter. It required patient-provider interaction for the medical decision making as documented below. I have communicated my name and active licensure. The patient's identity and physical location were verified at the time of this visit. Patient had previous deliveries with [facility] MAINTENANCE DISPATCHER. Had seen Suzanne Mathias for preconceptual counseling. States she has been trying to conceive for the past 18 months. She has a history of gestational hypertension with her first . Her last baby weighed 10 pounds at . She had opted out of the glucose test screening during and monitored her blood sugars at home. She states they were all borderline blood sugars. and his mother with bicuspid aortic valve. His mother had corrective surgery. Patient declines aneuploidy screening. Had genetic carrier screening in the past.Delores Lane RN documented in this encounter [facility] 03-19-2023 Note HNO ID: [id number] Author: Delores Lane RN Service: ? Author Type: ? Type: Progress Notes Filed: 03/19/2023 6:05 PM Note Text: INITIAL OB ASSESSMENT OB Provider: Delores Lane RN HPI: Minh is a 28 year old White here to establish Obstetrical Care. Patient's last menstrual period was 01/22/2023 (exact date). from OB Dating Form. Cycles regular was planned Complaints: None OB History T3 L2 SAB0 IAB0 Ectopic0 Multiple0 Live Births2 Previous history: Prior : never History of 4th degree laceration: No History of shoulder dystocia: No History of Hypertensive disorders including pre-eclampsia, chronic hypertension or gestational hypertension: No History of gestational diabetes: No Patient's Risk Screening for delivery: Have you had a prior barriga between 20w and 36w6d?: No MEDICAL/PSYCHOSOCIAL HISTORY: History of hemorrhage or bleeding concerns: No Thyroid Disease: No History of chronic hypertension: No History of pre-existing diabetes: No No results found for: ABORHD No weight on file for this encounter. History of abnormal pap: No Prior treatment for cervical dysplasia: none. 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 I don't have enough money to pay my bills: Never Within the past 12 months, have you worried that your food would run out before you had money to buy more: Never In the past 12 months, has lack of reliable transportation kept you from going to medical appointments or work, or from keeping things needed for daily living: Never In the past 12 months, have you had any concerns about having a place to live, or about the condition or quality of your housing: Never Are there any cultural or spiritual needs we should be aware of: No Depression: denies symptoms of depression. 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 No current facility-administered medications for this visit. Allergies As of Date: 03/19/2023 (No Known Allergies) Fully Assessed 03/19/2023 Does patient have penicillin allergy: No [facility] 03-19-2023 History of Presen t illness Narrative INITIAL OB ASSESSMENT OB Provider: Delores Lane RN HPI: Minh is a 28 year old White here to establish Obstetrical Care. Patient's last menstrual period was 01/22/2023 (exact date). from OB Dating Form. Cycles regular was planned Complaints: None OB History T3 L2 SAB0 IAB0 Ectopic0 Multiple0 Live Births2 Previous history: Prior : never History of 4th degree laceration: No History of shoulder dystocia: No History of Hypertensive disorders including pre-eclampsia, chronic hypertension or gestational hypertension: No History of gestational diabetes: No Patient's Risk Screening for delivery: Have you had a prior barriga between 20w and 36w6d?: No MEDICAL/PSYCHOSOCIAL HISTORY: History of hemorrhage or bleeding concerns: No Thyroid Disease: No History of chronic hypertension: No History of pre-existing diabetes: No No results found for: ABORHD No weight on file for this encounter. History of abnormal pap: No Prior treatment for cervical dysplasia: none. 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 I don't have enough money to pay my bills: Never Within the past 12 months, have you worried that your food would run out before you had money to buy more: Never In the past 12 months, has lack of reliable transportation kept you from going to medical appointments or work, or from keeping things needed for daily living: Never In the past 12 months, have you had any concerns about having a place to live, or about the condition or quality of your housing: Never Are there any cultural or spiritual needs we should be aware of: No Depression: denies symptoms of depression. 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 No current facility-administered medications for this visit. Allergies As of Date: 03/19/2023 (No Known Allergies) Fully Assessed 03/19/2023 Does patient have penicillin allergy: No documented in this encounter [facility] 03-05-2023 Miscellaneous Notes Patient notified. Natalia López RN If she is not having any bleeding and or cramping or pain, it it not necessary for HCG levels to be drawn. The order was signed if she desires this level. Suzanne Mathias APRN.CNM PNOB scheduled. Patient is feeling anxious about this because she is feeling so good . Asking for HCG quant. Orders pending. Please advise. Joelle Delacruz RN Left message for patient to return phone call. Patient has an appointment with Suzanne Mathias for NOB appointment. Please schedule PNOB appointment per CP. documented in this encounter [facility] documented as of this encounter (statuses as of 03/05/2023) [facility] History of Past illness Narrative* Problem Noted Date Diagnosed Date Resolved Date Enlargement of lymph nodes 06/19/2014 0 09/19/2019 documented as of this encounter (statuses as of 03/20/2023) [address]24-2014 History of Past illness Narrative* Problem Noted Date Diagnosed Date Resolved Date Enlargement of lymph nodes 06/19/2014 0 09/19/2019 documented as of this encounter (statuses as of 04/01/2023) [address]24-2014 History of Past illness Narrative* Problem Noted Date Diagnosed Date Resolved Date Enlargement of lymph nodes 06/19/2014 0 09/19/2019 documented as of this encounter (statuses as of 04/01/2023) [address]24-2014 History of Past illness Narrative* Problem Noted Date Diagnosed Date Resolved Date Enlargement of lymph nodes 06/19/2014 0 09/19/2019 documented as of this encounter (statuses as of 04/27/2023) [address]24-2014 History of Past illness Narrative* Problem Noted Date Diagnosed Date Resolved Date Enlargement of lymph nodes 06/19/2014 0 09/19/2019 documented as of this encounter (statuses as of 05/26/2023) [address]24-2014 History of Past illness Narrative* Problem Noted Date Diagnosed Date Resolved Date Enlargement of lymph nodes 06/19/2014 0 09/19/2019 documented as of this encounter (statuses as of 06/09/2023) [address]24[address]2014 History of Past illness Narrative* Problem Noted Date Diagnosed Date Resolved Date Enlargement of lymph nodes 06/19/2014 0 09/19/2019 documented as of this encounter (statuses as of 06/09/2023) [address]24[address]2014 History of Past illness Narrative* Problem Noted Date Diagnosed Date Resolved Date Enlargement of lymph nodes 06/19/2014 0 09/19/2019 documented as of this encounter (statuses as of 06/11/2023) [address]24-2014 History of Past illness Narrative* Problem Noted Date Diagnosed Date Resolved Date Enlargement of lymph nodes 06/19/2014 0 09/19/2019 documented as of this encounter (statuses as of 07/07/2023) [address]24[address]2014 History of Past illness Narrative* Problem Noted Date Diagnosed Date Resolved Date Enlargement of lymph nodes 06/19/2014 0 09/19/2019 documented as of this encounter (statuses as of 07/07/2023) [facility] note* Diagnosis Early stage of - Primary state, incidental [facility] Diagnosis with care elsewhere, antepartum- Primary History of gestational hypertension H/O macrosomia in infant in prior , currently with other poor obstetric history Family history of congenital heart defect Family history of congenital anomalies [facility] Diagnosis Encounter for supervision of normal in multigravida- Primary 9 weeks gestation of state, incidental History of gestational hypertension H/O macrosomia in infant in prior , currently with other poor obstetric history [facility] Diagnosis with inconclusive viability, single or unspecified fetus- Primary with uncertain dates in first trimester 9 weeks gestation of state, incidental [facility] Diagnosis 13 weeks gestation of - Primary state, incidental Encounter for supervision of normal in multigravida [facility] Diagnosis Encounter for supervision of normal in multigravida- Primary 17 weeks gestation of state, incidental [facility] Diagnosis with care elsewhere, antepartum- Primary H/O macrosomia in in prior , currently with other poor obstetric history Rubella non-immune status, antepartum Other specified complication, antepartum Supervision of other high risk pregnancies, second trimester History of gestational hypertension [facility] Diagnosis Encounter for anatomic survey- Primary Encounter for supervision of normal in multigravida 19 weeks gestation of state, incidental [facility] Diagnosis Encounter for anatomic survey- Primary [facility] Diagnosis 23 weeks gestation of - Primary state, incidental Encounter for supervision of normal in multigravida History of gestational hypertension H/O macrosomia in in prior , currently with other poor obstetric history [facility] Diagnosis Encounter for anatomic survey- Primary 23 weeks gestation of state, incidental documented in this encounter [facility] for referral (narrative)* Diagnostic Procedure Only (Routine) - Pending Review Specialty Diagnoses / Procedures Referred By Contac t Referred To Contact [facility] Diagnoses Encounter for supervision of normal in multigravida 9 weeks gestation of Procedures NUCHAL TRANSLUCENCY WHI US NUCHAL TRANSLUCENCY 1ST GESTATION Suzanne Mathias APRN.CNM [address] [place] [address] [facility] [employer] [place] [id number] Referral ID Status Reason Start Date Expiration Date Visits Requested Visits Authorized [id number] Pending Review Auto-Generat ed Referral 03/31/2023 03/30/2024 1 1 * Diagnostic Procedure Only (Routine) - Pending Review Specialty Diagnoses / Procedures Referred By Contac t Referred To [facility] [facility] Diagnoses Encounter for supervision of normal in multigravida 9 weeks gestation of Procedures OBSTETRIC ULTRASOUND WHI US PREG UTERUS AFTER 1ST TRIMEST GESTATION Suzanne Mathias APRN.CNM [address] [place] [address] [facility] [employer] [place] [id number] Referral ID Status Reason Start Date Expiration Date Visits Requested Visits Authorized [id number] Pending Review Auto-Generat ed Referral 03/31/2023 03/30/2024 1 1 [facility] for referral (narrative)* Diagnostic Procedure Only (Routine) - Authorized Specialty Diagnoses / Procedures Referred By Contac t Referred To Contact [facility] Diagnoses Encounter for anatomic survey Procedures OBSTETRIC ULTRASOUND WHI US PREG UTERUS AFTER 1ST TRIMEST GESTATION Suzanne Mathias APRN.CNM [address] [place] [address] [facility] [employer] [place] [id number] Referral ID Status Reason Start Date Expiration Date Visits Requested Visits Authorized [id number] Authorized Auto-Generat ed Referral 3 06/09/2024 1 1 [facility] Health Concerns Problem Noted Date Diagnosed Date [facility] - [facility] 03/31/2023 Education - [place] 03/31/2023 Problem Noted Date Diagnosed Date [facility] - [facility] 03/31/2023 Education - [place] 03/31/2023 Problem Noted Date Diagnosed Date [facility] - [facility] 03/31/2023 Education - [place] 03/31/2023 Problem Noted Date Diagnosed Date [facility] - [facility] 03/31/2023 Education - [place] 03/31/2023 Problem Noted Date Diagnosed Date [facility] - [facility] 03/31/2023 Education - [place] 03/31/2023 Problem Noted Date Diagnosed Date [facility] - [facility] 03/31/2023 Education - [place] 03/31/2023 Problem Noted Date Diagnosed Date [facility] - [facility] 03/31/2023 Education - [place] 03/31/2023 Summary Purpose Family History No Family History Records Found Advance Directives No Advanced Directives Records Found Additional Source Comments Source Comments (unrecognize d section and content) In the event this informatio n is protected by the Federal Confidentiality of Alcohol and Drug Abuse Patient Records regulations: The Federal rules restrict any use of the information to criminally investigate or prosecute any alcohol or drug abuse patient.[facility] the event this information is protected by the Federal Confidentiality of Alcohol and Drug Abuse Patient Records regulations: The Federal rules restrict any use of the information to criminally investigate or prosecute any alcohol or drug abuse patient.[facility] the event this information is protected by the Federal Confidentiality of Alcohol and Drug Abuse Patient Records regulations: The Federal rules restrict any use of the information to criminally investigate or prosecute any alcohol or drug abuse patient.[facility] the event this information is protected by the Federal Confidentiality of Alcohol and Drug Abuse Patient Records regulations: The Federal rules restrict any use of the information to criminally investigate or prosecute any alcohol or drug abuse patient.[facility] the event this information is protected by the Federal Confidentiality of Alcohol and Drug Abuse Patient Records regulations: The Federal rules restrict any use of the information to criminally investigate or prosecute any alcohol or drug abuse patient.[facility] the event this information is protected by the Federal Confidentiality of Alcohol and Drug Abuse Patient Records regulations: The Federal rules restrict any use of the information to criminally investigate or prosecute any alcohol or drug abuse patient.[facility] the event this information is protected by the Federal Confidentiality of Alcohol and Drug Abuse Patient Records regulations: The Federal rules restrict any use of the information to criminally investigate or prosecute any alcohol or drug abuse patient.[facility] the event this information is protected by the Federal Confidentiality of Alcohol and Drug Abuse Patient Records regulations: The Federal rules restrict any use of the information to criminally investigate or prosecute any alcohol or drug abuse patient.[facility] the event this information is protected by the Federal Confidentiality of Alcohol and Drug Abuse Patient Records regulations: The Federal rules restrict any use of the information to criminally investigate or prosecute any alcohol or drug abuse patient.[facility] the event this information is protected by the Federal Confidentiality of Alcohol and Drug Abuse Patient Records regulations: The Federal rules restrict any use of the information to criminally investigate or prosecute any alcohol or drug abuse patient.[facility] the event this information is protected by the Federal Confidentiality of Alcohol and Drug Abuse Patient Records regulations: The Federal rules restrict any use of the information to criminally investigate or prosecute any alcohol or drug abuse patient.[facility] Reason for Visit (unrecogniz ed section and content) Reason Comments Care Reason Onset Date Comments Care 04/27/2023 Reason Onset Date Comments Care 05/25/2023 Reason Comments US Specialty Diagnoses / Procedures Referred By Arian bullard Referred To Contact [facility] Diagnoses Encounter for supervision of normal in multigravida 9 weeks gestation of Procedures OBSTETRIC ULTRASOUND WHI US PREG UTERUS AFTER 1ST TRIMEST GESTATION Suzanne Mathias APRN.KAITLYNN [address] [place] [address] [facility] [address] [place] [address] Referral ID Status Reason Start Date Expiration Date V isits Requested Visits Authorized [id number] Closed Auto-Generate d Referral 03/31/2023 03/30/2024 1 1 Reason Comments Results Reason Onset Date Comments Care 07/06/2023 Specialty Diagnoses / Procedures Referred By Arian t Referred To Contact [facility] Diagnoses Encounter for anatomic survey Procedures OBSTETRIC ULTRASOUND WHI US PREG UTERUS AFTER 1ST TRIMEST GESTATION Suzanne Mathias APRN.CNM [address] [place] [address] [facility] [address] [place] [address] Referral ID Status Reason Start Date Expiration Date V isits Requested Visits Authorized [id number] Closed Auto-Generate d Referral 06/10/2023 06/09/2024 1 1 Care Teams (unrecognized sec tion and content) Contract Technician Relationship Specialty Start Date End Date Ann Reyes DO PCP - General Internal Medicine 06/19/14 Contract Technician Relationship Specialty Start Date End Date Ann Reyes DO PCP - General Internal Medicine 06/19/14 Contract Technician Relationship Specialty Start Date End Date Ann Reyes DO PCP - General Internal Medicine 06/19/14 Contract Technician Relationship Specialty Start Date End Date Ann Reyes DO PCP - General Internal Medicine 06/19/14 Contract Technician Relationship Specialty Start Date End Date Ann Reyes DO PCP - General Internal Medicine 06/19/14 Contract Technician Relationship Specialty Start Date End Date Ann Reyes DO PCP - General Internal Medicine 06/19/14 Contract Technician Relationship Specialty Start Date End Date Ann Reyes DO PCP - General Internal Medicine 06/19/14 Contract Technician Relationship Specialty Start Date End Date Ann Reyes DO PCP - General Internal Medicine 06/19/14 INFORMATION SOURCE (unrecogn ized section and content) FOR RECORDS PERTAINING TO PATIENTS WHO ARE OR HAVE BEEN ENROLLED IN A CHEMICAL DEPENDENCY/SUBSTANCEABUSE PROGRAM, SOME INFORMATION MAY BE OMITTED. This clinical summary was aggregated from multiple sources. Caution should be exercised in using it in the provision of clinical care. This summary normalizes information from multiple sources, and as a consequence, information in this document may materially change the coding, format and clinical context of patient data. In addition, data may be omitted in some cases. CLINICAL DECISIONS SHOULD BE BASED ON THE PRIMARY CLINICAL RECORDS. [facility]. provides no warranty or guarantee of the accuracy or completeness of information in this document.
[2023-08-03 07:44] LABS: Absolute Lymphocyte Count 1.69 X10^3/uL (0.83-4.51); Absolute Neutrophil Count 6.3 X10^3/uL (2.0-7.7); Basophil# 0.03 X10^3/uL; Basophil% 0.3 % (0-1); Eosinophil# 0.12 X10^3/uL; Eosinophils% 1.4 % (0-5); Hematocrit 38.1 % (37-47); Hemoglobin 12.3 g/dL (12.0-15.0); Lymphocyte # 1.69 X10^3/ul (0.83-4.51); Lymphocyte % 19.4 % (19-41); Mean Corp Hgb Conc 32.3 g/dL (32-36); Mean Corpuscular Hgb 30.1 pg (27.0-32.0); Mean Corpuscular Volume 93.2 fL (81-99); Mean Platelet Vol. 9.8 fl (6.2-12.0); Monocyte# 0.54 X10^3/uL; Monocyte% 6.2 % (0-10); NRBC Flagged by Analyzer 0 % (0-5); Neutrophil # 6.26 X10^3/uL (2.7-7.7); Platelet Count 225 K/mm3 (150-450); RBC Distribution Width CV 13.2 % (11.6-14.6); RBC Distribution Width SD 45.1 fl (35.1-43.9); Red Blood Count 4.09 M/mm3 (4.2-5.4); White Blood Count 8.7 K/mm3 (4.4-11.0)
[2023-08-03 08:18] LABS: Glucose Challenge Gest 1H 50g 167 mg/dL (70-140)
[2023-08-03 09:01] LABS: Syphilis Antibodies Non-reactive
== END | disposition home or self-care (01) ==
LOC: LAB 07:23
PROVIDERS: Referring Provider Advanced Practice Midwife; Visit Provider Advanced Practice Midwife
DX: Z34.82 Encounter for supervision of other normal pregnancy, second trimester (principal)
CPT/HCPCS: 36415; 82950; 85025; 86780

== ENCOUNTER → 2023-08-10 | Outpatient (CLI) | payer BC, SELFPAY ==
--- OUTSIDE RECORDS SUMMARY | 2023-08-10 07:00 | XMS RPT_ITS | CCD ---
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 Name Role Phone Ann Reyes DO Primary Care Provider ANN REYES Primary Care Unavailab le BAGLEYJENNIFER Attending Unavailable PLOTTS, SUZANNE Referring Unavailable AMY, ANN NAVARRO Primary Care Unavailab le AMY, ANN NAVARRO Primary Care Unavailab le BAGLEYJENNIFER Attending Unavailable PLOTTSSUZANNE Referring Unavailable AMY, ANN NAVARRO Primary Care Unavailab le BAGLEY, JENNIFER Attending Unavailable AMY, ANN NAVARRO Primary Care Unavailab le PLOTTS, SUZANNE Referring Unavailable AMY, ANN NAVARRO Primary Care Unavailab le WISWELL, TD Attending Unavailable PLOTTS, SUZANNE Referring Unavailable AMY, ANN NAVARRO Primary Care Unavailab le PLOTTSSUZANNE Attending Unavailable PLOTTS, SUZANNE Attending Unavailable AMY, ANN NAVARRO Primary Care Unavailab le AMY, ANN NAVARRO Primary Care Unavailab le AMY, ANN NAVARRO Primary Care Unavailab le BAGLEY, JENNIFER Attending Unavailable Medications Completed/Discontinued Medications Medication Drug Class(es) Dates Sig (Normalized) Sig (Original) VIT 80-[id number]-[id number]-DHA ORAL (10 sources) VIT 39-DSOS-LVYVJ-DHA ORAL Take by mouth. 0 Active Problems [...] weeks gestation of ] Onset: 06-08-2023 Episodic Unclassified (1 source) Rubella non-immune status, antepartum; Translations: [Rubella non-immune status, antepartum] Onset: 04-29-2023 Past or Other Problems Problem Classification Problem Date Documented Date Episodic/Chronic Other complications of (1 source) Supervision of with other poor reproductive or obstetric history, unspecified trimester; Translations: [H/O macrosomia in in prior , currently ] Onset: 03-19-2023 Episodic Other complications of (1 source) Supervision of other high risk pregnancies, unspecified trimester; Translations: [Rubella non-immune status, antepartum] Onset: 04-29-2023 Episodic Other complications of (1 source) with [...] [History of gestational hypertension] Onset: 03-19-2023 Episodic Residual codes; unclassified (1 source) 9 weeks gestation of ; Translations: [9 weeks gestation of ] Onset: 04-27-2023 Episodic Results Test Name Value Interpretation Reference Range Facil ity Vital Signs Date Time Vital Sign Value Performing Clinician Carl del cid 07-06-2023 14:58-0500 Body weight 89.54 kg Jennifer Bagley APRN.CNM Work Phone: [facility] 07-06-2023 14:58-0500 Diastolic blood pressure 64 mm[Hg] Jennifer Bagley APRN.CNM Work Phone: [facility] 07-06-2023 14:58-0500 Systolic blood pressure 110 mm[Hg] Jennifer Bagley APRN.CNM Work Phone: [facility] 06-08-2023 13:56-0500 Body weight 88 kg Jennifer Bagley APRN.CNM Work Phone: [facility] 06-08-2023 13:56-0500 Diastolic blood pressure 62 mm[Hg] Jennifer Bagley APRN.CNM Work Phone: [facility] 06-08-2023 13:56-0500 Systolic blood pressure 110 mm[Hg] Jennifer Bagley IT DISASTER RECOVERY MANAGER.CNM Work Phone: [facility] 05-25-2023 13:37-0400 Body weight 87.09 kg Jennifer Bagley IT DISASTER RECOVERY MANAGER.CNM Work Phone: [facility] 05-25-2023 13:37-0400 Diastolic blood pressure 66 mm[Hg] Jennifer Bagley IT DISASTER RECOVERY MANAGER.CNM Work Phone: [facility] 05-25-2023 13:37-0400 Systolic blood pressure 110 mm[Hg] Jennifer Bagley IT DISASTER RECOVERY MANAGER.CNM Work Phone: [facility] 04-27-2023 09:50-0400 Body weight 84.55 kg Td Gleason MD Work Phone: [facility] 04-27-2023 09:50-0400 Diastolic blood pressure 62 mm[Hg] Td Gleason MD Work Phone: [facility] 04-27-2023 09:50-0400 Systolic blood pressure 106 mm[Hg] Td Gleason MD Work Phone: [facility] 03-31-2023 13:08-0400 Body height 167.6 cm Suzanne Mathias IT DISASTER RECOVERY MANAGER.CNM Work Phone: [facility] 03-31-2023 13:08-0400 Body weight 82.1 kg Suzanne Mathias IT DISASTER RECOVERY MANAGER.CNM Work Phone: [facility] 03-31-2023 13:08-0400 Diastolic blood pressure 60 mm[Hg] Suzanne Plotts IT DISASTER RECOVERY MANAGER.CNM Work Phone: [facility] 03-31-2023 13:08-0400 Systolic blood pressure 118 mm[Hg] Suzanne Plotchung IT DISASTER RECOVERY MANAGER.CNM Work Phone: [facility] Encounters Encounter Date Encounter Type Care Provider Facility Start: 08-03-2023 End: 08-03-2023 ambulatory ANN REYES Facility:[facility] Start: 07-06-2023 End: 07-06-2023 ambulatory ANN REYES Facility:[facility] Start: 07-06-2023 End: 07-06-2023 Patient encounter procedure Jennifer Bagley APRN.CNM Work Phone: OB/Gynecology Procedures Date Procedure Procedure Detail Performing Clinician Start: 07-06-2023 Us preg uterus after 1st trimest 07/27 gestation Suzanne Mathias IT DISASTER RECOVERY MANAGER.CNM Work Phone: Start: 07-06-2023 URINE OB DIP B/O Colessic shabana Bagley IT DISASTER RECOVERY MANAGER.CNM Work Phone: Start: 06-08-2023 Us preg uterus after 1st trimest 07/27 gestation Suzanne Mathias APRN.CNM Work Phone: Start: 05-25-2023 URINE OB DIP B/O Maric shabana Bagley IT DISASTER RECOVERY MANAGER.CNM Work Phone: Start: 04-27-2023 Antibody screen ELLIOTT REYES Plan of Treatment Date Care Activity Detail Author Start: 07-06-2023 End: 10-05-2023 CBC W Auto Differential panel - Blood CBC + DIFF Lab Routine 23 weeks gestation of Encounter for supervision of normal in multigravida Expected: 07/06/2023, Expires: 10/05/2023 [facility] Work Phone: Immunizations Immunization Date Immunization Notes Care Provider Allyn gibbons 03-06-2006 Meningococcal, MCV4, unspecified conjugate formulation(groups A, C, Y and W-135) Suzanne Mathias APRN.ANNIEM Work Phone: [facility] 03-06-2006 tetanus toxoid, redu lara diphtheria toxoid, and acellular pertussis vaccine, adsorbed Suzanne Mathias IT DISASTER RECOVERY MANAGER.CNM Work Phone: [facility] 04-15-1999 diphtheria, tetanus toxoids and acellular pertussis vaccine Suzanne Mathias IT DISASTER RECOVERY MANAGER.CNM Work Phone: [facility] Work Phone: 04-15-1999 measles, mumps and rubella virus vaccine Suzanne Plotts IT DISASTER RECOVERY MANAGER.CNM Work Phone: [facility] Work Phone: 04-15-1999 trivalent poliovirus vaccine, live, oral Suzanne Plotts IT DISASTER RECOVERY MANAGER.CNM Work Phone: [facility] Work Phone: 07-10-1995 diphtheria, tetanus toxoids and acellular pertussis vaccine Suzanne Plotts IT DISASTER RECOVERY MANAGER.CNM Work Phone: [facility] Work Phone: 07-10-1995 haemophilus influenz ae type b vaccine, HbOC conjugate Suzanne Plotts IT DISASTER RECOVERY MANAGER.CNM Work Phone: [facility] Work Phone: 07-10-1995 measles, mumps and rubella virus vaccine Suzanne Plotts IT DISASTER RECOVERY MANAGER.CNM Work Phone: [facility] Work Phone: 1994 DTP-Haemophilus influenzae type b conjugate vaccine Suzanne Plotts IT DISASTER RECOVERY MANAGER.CNM Work Phone: [facility] Work Phone: 1994 hepatitis B vaccine, pediatric or pediatric/adolescent dosage Suzanne Plotts IT DISASTER RECOVERY MANAGER.CNM Work Phone: [facility] Work Phone: 1994 trivalent poliovirus vaccine, live, oral Suzanne Plotts IT DISASTER RECOVERY MANAGER.CNM Work Phone: [facility] Work Phone: 1994 DTP-Haemophilus influenzae type b conjugate vaccine Suzanne Plotts IT DISASTER RECOVERY MANAGER.CNM Work Phone: [facility] Work Phone: 1994 trivalent poliovirus vaccine, live, oral Suzanne Plotts IT DISASTER RECOVERY MANAGER.CNM Work Phone: [facility] Work Phone: 1994 diphtheria, tetanus toxoids and pertussis vaccine Suzanne Plotts IT DISASTER RECOVERY MANAGER.CNM Work Phone: [facility] Work Phone: 1994 haemophilus influenz ae type b vaccine, HbOC conjugate [facility] IT DISASTER RECOVERY MANAGER.CNM Work Phone: [facility] Work Phone: 1994 trivalent poliovirus vaccine, live, oral [facility] IT DISASTER RECOVERY MANAGER.CNM Work Phone: [facility] Work Phone: 1994 hepatitis B vaccine, pediatric or pediatric/adolescent dosage [facility] IT DISASTER RECOVERY MANAGER.CNM Work Phone: [facility] Work Phone: 1994 hepatitis B vaccine, pediatric or pediatric/adolescent dosage [facility] Plotts IT DISASTER RECOVERY MANAGER.CNM Work Phone: [facility] Work Phone: Payers Date Payer Category Payer Unknown [employer] FEP PPO [id number] 2017-Present [phone] [address] [place] [address] PPO [id number] 2017 Unknown [id number] Social History Date Type Detail Facility Start: 09-19-2019 End: 03-31-2023 Tobacco smoking status WVIS Never smoked tobacco [facility] Work Phone: Start: 09-19-2019 End: 03-31-2023 Tobacco use and exposure Smokeless tobacco non-user [facility] Work Phone: Start: 09-19-2019 Alcohol intake Current drinke r of alcohol (finding) [facility] Start: 09-19-2019 End: 06-08-2023 History of Social function [facility] Start: 09-19-2019 End: 06-08-2023 Tobacco use panel [facility] National Score (1-100), lower number is lower risk Not on file [facility] Start: 09-19-2019 Alcohol Comment Occasionally [facility] Start: 1995 Sex Assigned At Not on file [facility] Start: 03-19-2023 End: 07-06-2023 Alcohol intake Ex-drinker (finding) [facility] Start: 03-19-2023 Education 15 [facility] Start: 02-05-2023 [facility] Goals Date Patient Goal Desired Activity /State Personal health goal Clinical Notes 06-19-2014 to 07-06-2023 Quick Notes - Jennifer Bagley APRN.CNM - 07/06/2023 3:04 PM ESTPatient InstructionsTelephone Encounter - Suzanne Mathias APRN.CNM - 06/10/2023 5:06 PM ESTPatient Instructions [...] gestational hypertension - 4. H/O macrosomia in in prior , currently Plan: 1) PTL/ Preeclampsia precautions reviewed and when to call 2) RTO in 4 weeks 3) Fresh test at [facility], lab slip given for 28 wk labs 4) Baby was in breech position during US. Pt will begin Daily Activities per [facility]. 5) Would like to avoid future US if possible. Will follow up with recommendations after final report. [facility] INTER[facility] NOTE OF PERSONAL INVOLVEMENT IN CARE: I have interviewed the patient and updated the midwifery student's PFS history, and ROS as necessary. I have re-performed the HPI, Physical Examination, Assessment and Plan. Jennifer Bagley APRN.CNM documented in this encounter [facility] 07-06-2023 Instructions Shane Vela Cma - 07/06/2023 3:01 PM EST SEQUENTIAL SCREENINGS The [facility] offers sequential screenings for women who are [...] It will require an appointment with our records technician. This is not an ultrasound performed [...] the above symptoms, contact our office at [phone] and ask to speak with a nurse. After hours, you can call doctors registry at [phone] OR call [facility] at [phone] and ask to have the doctor vocational rehabilitation technician paged. If you consider this an emergency, dial 9-1-5 or go to your nearest emergency department. NEED HELP? Are you dealing with a violent or abusive relationship? Are you a victim of rape or sexual assult? Call [facility] ([place]) 24 hour Crisis Hotline: 586.566.8065 or 342-180-3270. MANUAL Your Guide to a Healthy manual is now on-line. Visit [email or web address] to download your free copy documented in this encounter [facility] 06-10-2023 Miscellaneous Notes Order signed. Thank you! [...] Suzanne Mathias APRN.CNM documented in this encounter [facility] 06-08-2023 Miscellaneous Notes KRISTIE-S: Minh Valencia is [...] care elsewhere, antepartum 2. H/O macrosomia in in prior , currently 3. Rubella non-immune status, antepartum 4. Supervision of other high risk pregnancies, second trimester 5. History of gestational hypertension P: 1) PTL precautions reviewed and when to call 2) RTO in 4 weeks 3) Declines ASA 4) Anatomy US today Jennifer Bagley APRN.CNM documented in this encounter [facility] 05-25-2023 Miscellaneous Notes KRISTIE-S: Minh Valencia is [...] Jennifer Bagley APRN.CNM documented in this encounter [facility] 05-25-2023 Instructions Shane Vela Cma 05/25/2023 1:31 PM EDT SEQUENTIAL SCREENINGS The [facility] offers sequential screenings for women who are [...] It will require an appointment with our records technician. This is not an ultrasound performed [...] the above symptoms, contact our office at [phone] and ask to speak with a nurse. After hours, you can call doctors registry at [phone] OR call [facility] at [phone] and ask to have the doctor vocational rehabilitation technician paged. If you consider this an emergency, dial 9-1-1 or go to your nearest emergency department. NEED HELP? Are you dealing with a violent or abusive relationship? Are you a victim of rape or sexual assult? Call [facility] ([place]) 24 hour Crisis Hotline: 559.602.9446 or 750-613-2298. MANUAL Your Guide to a Healthy manual is now on-line. Visit [email or web address] to download your free copy documented in this encounter [facility] 04-27-2023 Miscellaneous Notes SW- Some MSK pain. No pain, vb, lof. Reviewed diet and exercise in . NOB labs today. Declines aneuploidy and carrier screening. Schedule anatomy US. RTO 4 wks. Td Gleason DO documented in this encounter [facility] 04-27-2023 Instructions Nguyen Lozada MA - 04/27/2023 9:46 AM EDT SEQUENTIAL SCREENINGS The [facility] offers sequential screenings for women who are [...] It will require an appointment with our records technician. This is not an ultrasound performed [...] the above symptoms, contact our office at [phone] and ask to speak with a nurse. After hours, you can call doctors registry at [phone] OR call [facility] at [phone] and ask to have the doctor vocational rehabilitation technician paged. If you consider this an emergency, dial 9--1 or go to your nearest emergency department. NEED HELP? Are you dealing with a violent or abusive relationship? Are you a victim of rape or sexual assult? Call [facility] ([place]) 24 hour Crisis Hotline: 258.741.4174 or 324-010-6145. MANUAL Your Guide to a Healthy manual is now on-line. Visit [email or web address] to download your free copy documented in this encounter [facility] 03-31-2023 Note HNO ID: [id number] Author: Suzanne Mathias APRN.CNM Service: ? Author Type: Industrial Gas Servicer Helper Type: Progress Notes Filed: 03/31/2023 5:02 PM Note Text: OB point of care ultrasound was performed. See imaging tab for details. Suzanne Mathias APRN.CNM [facility] 03-31-2023 History of Presen t illness Narrative OB point of care ultrasound was performed. See imaging tab for details. Suzanne Mathias APRN.CNM documented in this encounter [facility] 03-31-2023 Miscellaneous Notes Patient is a at 9.5 weeks gestation for NOB. See progress note. Suzanne Mathias APRN.CNM documented in this encounter [facility] 03-31-2023 Note HNO ID: [id number] Author: Suzanne Mathias APRN.CNM Service: ? 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 No current facility-administered [...] No vaginal or cervical lesions. Cervix closed. [place] (more content not included)... 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 No current facility-administered [...] Your guide to a health and the Web Offset Press Feeder. Discussed aneuploidy and carrier screening. Regarding aneuploidy [...] and Carrier screening: Declines Reviewed midwifery and upper caser services that are available. Follow up in 4 weeks or sooner prn. Suzanne Mathias APRN.CNM documented in this encounter [facility] 03-31-2023 Shane Orantes Cma - 03/31/2023 12:59 PM EDT Please select the following link to access the [facility] Your Guide to a Healthy . [email or web address] documented in this encounter [facility] 03-19-2023 Miscellaneous Notes DISTANCE HEALTH VISIT This Team Access Model visit is a phone encounter. It required patient-provider interaction for the medical decision making as documented below. I have communicated my name and active licensure. The patient's identity and physical location were verified at the time of this visit. Patient had previous deliveries with [facility]. Had seen Suzanne Mathias for preconceptual counseling. [...] past.Delores Lane RN documented in this encounter [facility] 03-19-2023 Note HNO ID: [id number] Author: Delores Lane RN Service: ? 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 No current facility-administered medications for this visit. 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 No current facility-administered medications for this visit. Allergies As of Date: 03/19/2023 (No Known Allergies) Fully Assessed 03/19/2023 Does patient have penicillin allergy: No documented in this encounter [facility] 03-05-2023 Miscellaneous Notes Patient notified. Natalia López [...] appointment per CP. documented in this encounter [facility] documented as of this encounter (statuses as of 03/05/2023) [address]24-2014 History of Past illness Narrative* Problem Noted Date Diagnosed Date Resolved Date Enlargement of lymph nodes 06/19/2014 0 09/19/2019 documented as of this encounter (statuses as of 03/20/2023) [address]24[address] History of Past illness Narrative* Problem Noted Date Diagnosed Date Resolved Date Enlargement of lymph nodes 06/19/2014 0 09/19/2019 documented as of this encounter (statuses as of 04/01/2023) [address]24[address]2014 History of Past illness Narrative* Problem Noted Date Diagnosed Date Resolved Date Enlargement of lymph nodes 06/19/2014 0 09/19/2019 documented as of this encounter (statuses as of 04/01/2023) [address]24[address] History of Past illness Narrative* Problem Noted Date Diagnosed Date Resolved Date Enlargement of lymph nodes 06/19/2014 0 09/19/2019 documented as of this encounter (statuses as of 04/27/2023) [address] History of Past illness Narrative* Problem Noted Date Diagnosed Date Resolved Date Enlargement of lymph nodes 06/19/2014 0 09/19/2019 documented as of this encounter (statuses as of 05/26/2023) [address] History of Past illness Narrative* Problem Noted Date Diagnosed Date Resolved Date Enlargement of lymph nodes 06/19/2014 0 09/19/2019 documented as of this encounter (statuses as of 06/09/2023) [address]2014 History of Past illness Narrative* Problem Noted Date Diagnosed Date Resolved Date Enlargement of lymph nodes 06/19/2014 0 09/19/2019 documented as of this encounter (statuses as of 06/09/2023) [address] History of Past illness Narrative* Problem Noted Date Diagnosed Date Resolved Date Enlargement of lymph nodes 06/19/2014 0 09/19/2019 documented as of this encounter (statuses as of 06/11/2023) [address] History of Past illness Narrative* Problem Noted Date Diagnosed Date Resolved Date Enlargement of lymph nodes 06/19/2014 0 09/19/2019 documented as of this encounter (statuses as of 07/07/2023) [facility] History of Past illness Narrative* Problem Noted Date Diagnosed Date Resolved Date Enlargement of lymph nodes 06/19/2014 0 09/19/2019 documented as of this encounter (statuses as of 07/07/2023) [facility] note* Diagnosis Early stage of - Primary state, incidental [facility] Diagnosis with care elsewhere, antepartum- Primary History of gestational hypertension H/O macrosomia in in prior , currently with other poor obstetric history Family history of congenital heart defect Family history of congenital anomalies [facility] Diagnosis Encounter for supervision of normal in multigravida- Primary 9 weeks gestation of state, incidental History of gestational hypertension H/O macrosomia in in prior , currently with other poor obstetric history [facility] Diagnosis with inconclusive viability, single or unspecified fetus- Primary with uncertain dates in first trimester 9 weeks gestation of state, incidental [facility] Diagnosis 13 weeks gestation of - Primary state, incidental Encounter for supervision of normal in multigravida [facility] Diagnosis Encounter for supervision of normal in multigravida- Primary 17 weeks gestation of state, incidental [facility] Diagnosis with care elsewhere, antepartum- Primary H/O macrosomia in in prior , currently with other poor obstetric history Rubella non-immune status, antepartum Other specified complication, antepartum Supervision of other high risk pregnancies, second trimester History of gestational hypertension [facility] this [facility] Diagnosis Encounter for anatomic survey- Primary Encounter for supervision of normal in multigravida 19 weeks gestation of state, incidental documented in this encounter [facility]* Diagnosis Encounter for anatomic survey- Primary documented in this encounter [facility]* Diagnosis 23 weeks gestation of - Primary state, incidental Encounter for supervision of normal in multigravida History of gestational hypertension H/O macrosomia in in prior , currently with other poor obstetric history documented [facility] this encounter [facility]* Diagnosis Encounter for anatomic survey- Primary 23 weeks gestation of state, incidental documented in this encounter [facility] for referral (narrative)* Diagnostic Procedure Only (Routine) - Pending Review Specialty Diagnoses / Procedures Referred By Contac t Referred To Contact [facility] Diagnoses Encounter for supervision of normal in multigravida 9 weeks gestation of Procedures NUCHAL TRANSLUCENCY WHI US NUCHAL TRANSLUCENCY 1ST GESTATION Suzanne Mathias APRN.CNM [address] [place] [address] [facility] [employer] [place] [address] Referral ID Status Reason Start Date Expiration Date Visits Requested Visits Authorized [id number] Pending Review Auto-Generat ed Referral 03/31/2023 03/30/2024 1 1 * Diagnostic Procedure Only (Routine) - Pending Review Specialty Diagnoses / Procedures Referred By Lyndaac t Referred To Contact [facility] Diagnoses Encounter for supervision of normal in multigravida 9 weeks gestation of Procedures OBSTETRIC ULTRASOUND WHI US PREG UTERUS AFTER 1ST TRIMEST GESTATION Suzanne Mathias APRN.CNM [address] [place] [address] [facility] [address] [place] [address] Referral ID Status Reason Start Date Expiration Date Visits Requested Visits Authorized [id number] Pending Review Auto-Generat ed Referral 03/31/2023 03/30/2024 1 1 [facility] for referral (narrative)* Diagnostic Procedure Only (Routine) - Authorized Specialty Diagnoses / Procedures Referred By Contac t Referred To Contact [facility] Diagnoses Encounter for anatomic survey Procedures OBSTETRIC ULTRASOUND WHI US PREG UTERUS AFTER 1ST TRIMEST GESTATION Suzanne Mathias APRN.CNM [address] [place] [address] [facility] [address] [place] [address] Referral ID Status Reason Start Date Expiration Date Visits Requested Visits Authorized [id number] Authorized Auto-Generat ed Referral 3 06/09/2024 1 1 [facility] Health Concerns Problem Noted Date Diagnosed Date [facility] - [facility] 03/31/2023 [facility] - [place] 03/31/2023 Problem Noted Date Diagnosed Date [facility] - [facility] 03/31/2023 Education - [place] 03/31/2023 Problem Noted Date Diagnosed Date [facility] - [facility] 03/31/2023 Education - [place] 03/31/2023 Problem Noted Date Diagnosed Date [facility] - [facility] 03/31/2023 Education - [place] 03/31/2023 Problem Noted Date Diagnosed Date [facility] - [facility] 03/31/2023 Education - [place] 03/31/2023 Problem Noted Date Diagnosed Date [facility] - [facility] 03/31/2023 Education - [place] 03/31/2023 Problem Noted Date Diagnosed Date [facility] - [facility] 03/31/2023 Education - [place] 03/31/2023 Summary Purpose Family History No Family [...] or prosecute any alcohol or drug abuse patient.[facility] the event this information is protected by the Federal Confidentiality of Alcohol and Drug Abuse Patient Records regulations: The Federal rules restrict any use of the information to criminally investigate or prosecute any alcohol or drug abuse patient.[facility] the event this information is protected by the Federal Confidentiality of Alcohol and Drug Abuse Patient Records regulations: The Federal rules restrict any use of the information to criminally investigate or prosecute any alcohol or drug abuse patient.[facility] the event this information is protected by the Federal Confidentiality of Alcohol and Drug Abuse Patient Records regulations: The Federal rules restrict any use of the information to criminally investigate or prosecute any alcohol or drug abuse patient.[facility] the event this information is protected by the Federal Confidentiality of Alcohol and Drug Abuse Patient Records regulations: The Federal rules restrict any use of the information to criminally investigate or prosecute any alcohol or drug abuse patient.[facility] the event this information is protected by the Federal Confidentiality of Alcohol and Drug Abuse Patient Records regulations: The Federal rules restrict any use of the information to criminally investigate or prosecute any alcohol or drug abuse patient.[facility] the event this information is protected by the Federal Confidentiality of Alcohol and Drug Abuse Patient Records regulations: The Federal rules restrict any use of the information to criminally investigate or prosecute any alcohol or drug abuse patient.[facility] the event this information is protected by the Federal Confidentiality of Alcohol and Drug Abuse Patient Records regulations: The Federal rules restrict any use of the information to criminally investigate or prosecute any alcohol or drug abuse patient.[facility] the event this information is protected by the Federal Confidentiality of Alcohol and Drug Abuse Patient Records regulations: The Federal rules restrict any use of the information to criminally investigate or prosecute any alcohol or drug abuse patient.[facility] the event this information is protected by the Federal Confidentiality of Alcohol and Drug Abuse Patient Records regulations: The Federal rules restrict any use of the information to criminally investigate or prosecute any alcohol or drug abuse patient.[facility] the event this information is protected by the Federal Confidentiality of Alcohol and Drug Abuse Patient Records regulations: The Federal rules restrict any use of the information to criminally investigate or prosecute any alcohol or drug abuse patient.[facility] Reason for Visit (unrecogniz ed section and content) Reason Comments Care Reason Onset Date Comments Care 04/27/2023 Reason Onset Date Comments Care 05/25/2023 Reason Comments US Specialty Diagnoses / Procedures Referred By Arian t Referred To Contact [facility] Diagnoses Encounter for supervision of normal in multigravida 9 weeks gestation of Procedures OBSTETRIC ULTRASOUND WHI US PREG UTERUS AFTER 1ST TRIMEST GESTATION Suzanne Mathias APRN.KAITLYNN [address] [place] [address] [facility] [address] [place] [address] Referral ID Status Reason Start Date Expiration Date V isits Requested Visits Authorized [id number] Closed Auto-Generate d Referral 03/31/2023 03/30/2024 1 1 Reason Comments Results Reason Onset Date Comments Care 07/06/2023 Specialty Diagnoses / Procedures Referred By Contac t Referred To Contact [facility] Diagnoses Encounter for anatomic survey Procedures OBSTETRIC ULTRASOUND WHI US PREG UTERUS AFTER 1ST TRIMEST GESTATION Suzanne Mathias APRN.KAITLYNN [address] [place] [address] [facility] [place] [address] Referral ID Status Reason Start Date Expiration Date V isits Requested Visits Authorized [id number] Closed Auto-Generate d Referral 06/10/2023 06/09/2024 1 1 Care Teams (unrecognized sec tion and content) Narrow Gauge Engineer Relationship Specialty Start Date End Date Ann Reyes DO PCP - General Internal Medicine 06/19/14 Narrow Gauge Engineer Relationship Specialty Start Date End Date Ann Reyes DO PCP - General Internal Medicine 06/19/14 Narrow Gauge Engineer Relationship Specialty Start Date End Date Ann Reyes DO PCP - General Internal Medicine 06/19/14 Narrow Gauge Engineer Relationship Specialty Start Date End Date Ann Reyes DO PCP - General Internal Medicine 06/19/14 Narrow Gauge Engineer Relationship Specialty Start Date End Date Ann Reyes DO PCP - General Internal Medicine 06/19/14 Narrow Gauge Engineer Relationship Specialty Start Date End Date Ann Reyes DO PCP - General Internal Medicine 06/19/14 Narrow Gauge Engineer Relationship Specialty Start Date End Date Ann Reyes DO PCP - General Internal Medicine 06/19/14 Narrow Gauge Engineer Relationship Specialty Start Date End Date Ann [...] BE BASED ON THE PRIMARY CLINICAL RECORDS. [employer] provides no warranty or guarantee of the accuracy or completeness of information in this document.
[2023-08-10 11:14] LABS: Glucose GTT-Gestational 2 Hr 123 mg/dL (<165)
[2023-08-10 11:25] LABS: Glucose GTT-Gestational 3 Hr 53 L (<145)
[2023-08-10 11:25] LABS: Glucose GTT-Gestation. Fasting 95 mg/dL (<105)
[2023-08-10 12:44] LABS: Glucose GTT-Gestational 1 Hr 151 mg/dL (<190)
== END | disposition home or self-care (01) ==
LOC: LAB 06:58
PROVIDERS: Referring Provider Advanced Practice Midwife; Visit Provider Advanced Practice Midwife
DX: O99.810 Abnormal glucose complicating pregnancy (principal); Z3A.27 27 weeks gestation of pregnancy
CPT/HCPCS: 36415; 82951; 82952

== ENCOUNTER 2023-10-23 02:25 | Inpatient (IN) | payer BC, SELFPAY ==
[2023-10-23] VITALS (46 sets, daily range): BP systolic 108–139; BP diastolic 61–84; PULSE 67–97; RESP 16–18; TEMP 36.4–37.2; O2SAT 90–100; BMI 34.0
[2023-10-23 03:16] LABS: Absolute Lymphocyte Count 2.62 X10^3/uL (0.83-4.51); Absolute Neutrophil Count 5.6 X10^3/uL (2.0-7.7); Basophil# 0.06 X10^3/uL; Basophil% 0.7 % (0-1); Eosinophil# 0.13 X10^3/uL; Eosinophils% 1.4 % (0-5); Hematocrit 35.6 % (37-47); Hemoglobin 11.4 g/dL (12.0-15.0); Lymphocyte # 2.62 X10^3/ul (0.83-4.51); Lymphocyte % 28.6 % (19-41); Mean Corpuscular Hgb 27.1 pg (27.0-32.0); Mean Corpuscular Volume 84.6 fL (81-99); Mean Platelet Vol. 10.9 fl (6.2-12.0); Monocyte# 0.75 X10^3/uL; Monocyte% 8.2 % (0-10); NRBC Flagged by Analyzer 0 % (0-5); Neutrophil # 5.55 X10^3/uL (2.7-7.7); Neutrophil % 60.4 % (47-70); Platelet Count 259 K/mm3 (150-450); RBC Distribution Width SD 39.8 fl (35.1-43.9); Red Blood Count 4.21 M/mm3 (4.2-5.4); White Blood Count 9.2 K/mm3 (4.4-11.0)
[2023-10-23 03:45] LABS: Syphilis Antibodies Non-reactive
[2023-10-23] MEDS: fentaNYL-bupivacaine (epidural) 100 ML BAG EPIDURAL (03:46)
[2023-10-23] MEDS: Lactated Ringers 1,000 ML 50 ML IV (04:15)
[2023-10-23] MEDS: LACTATED RINGERS 500 ML 999 ML IV (04:16)
[2023-10-23] MEDS: Oxytocin 15 Units/NS 250ml 15 UNITS/250 ML IV.SOLN 83 UNITS IV (07:00)
--- NOTE | 2023-10-23 07:03 | PCM.HP.OB ---
HPI - General General Date of Admission: 10/23/23 Date of Service: 10/23/23 HPI Narrative MINH VALENCIA, is a 28 F who presents with ctxs. Maternal Data Information Final AYAAN: 10/29/23 Gestational age: 39&1 PFSH PFSH Medical History Gestational HTN macrosomia Home Medications vits,calcium no.78-iron fumarate-folic acid 29 mg-1 mg tablet (Prenatabs FA) 1 tab PO DAILY preg 10/22/17 [History Last Taken 08/06/21 10:00] Allergy/AdvReac Type Severity Reaction Status Date / Time No Known Allergies Allergy Verified 08/07/21 05:27 Social History Smoking Status: Never smoker History Elective abortions Hx Para 2 Spontaneous abortions Hx # Term Pregnancies Ectopic pregnancies Hx # Pregnancies Multiple births # of living children Vital Signs Vital Signs Vital Signs: 10/23/23 02:04 10/23/23 02:04 10/23/23 02:04 Temperature Temperature Source Pulse Rate 94 89 Respiratory Rate Blood Pressure 121/77 H BP Systolic 121 BP Diastolic 77 Pulse Ox 10/23/23 02:04 10/23/23 02:04 10/23/23 02:04 Temperature Temperature Source Temporal Pulse Rate Respiratory Rate 18 Blood Pressure BP Systolic BP Diastolic Pulse Ox 98 10/23/23 02:04 10/23/23 03:09 10/23/23 03:09 Temperature 99.0 F Temperature Source Temporal Pulse Rate Respiratory Rate 16 Blood Pressure BP Systolic BP Diastolic Pulse Ox 10/23/23 03:09 10/23/23 03:11 10/23/23 03:11 Temperature 97.6 F L Temperature Source Pulse Rate 81 Respiratory Rate Blood Pressure BP Systolic BP Diastolic Pulse Ox 91 10/23/23 03:13 10/23/23 03:13 10/23/23 03:38 Temperature Temperature Source Pulse Rate 81 85 Respiratory Rate Blood Pressure 112/68 BP Systolic 112 BP Diastolic 68 Pulse Ox 10/23/23 03:38 10/23/23 03:43 10/23/23 03:43 Temperature Temperature Source Pulse Rate 77 Respiratory Rate Blood Pressure BP Systolic BP Diastolic Pulse Ox 100 98 10/23/23 03:45 10/23/23 03:45 10/23/23 03:46 Temperature Temperature Source Pulse Rate 80 Respiratory Rate Blood Pressure 118/73 BP Systolic 118 BP Diastolic 73 Pulse Ox 90 10/23/23 03:46 10/23/23 03:48 10/23/23 03:48 Temperature Temperature Source Pulse Rate 73 83 Respiratory Rate Blood Pressure BP Systolic BP Diastolic Pulse Ox 98 10/23/23 03:53 10/23/23 03:53 10/23/23 03:55 Temperature Temperature Source Pulse Rate 74 76 Respiratory Rate Blood Pressure BP Systolic BP Diastolic Pulse Ox 97 10/23/23 03:55 10/23/23 03:56 10/23/23 03:56 Temperature Temperature Source Pulse Rate 79 Respiratory Rate Blood Pressure 114/72 BP Systolic 114 BP Diastolic 72 Pulse Ox 94 10/23/23 03:58 10/23/23 03:58 10/23/23 04:02 Temperature Temperature Source Pulse Rate 76 Respiratory Rate Blood Pressure 119/65 BP Systolic 119 BP Diastolic 65 Pulse Ox 100 10/23/23 04:02 10/23/23 04:03 10/23/23 04:03 Temperature Temperature Source Pulse Rate 73 73 Respiratory Rate Blood Pressure BP Systolic BP Diastolic Pulse Ox 100 10/23/23 04:08 10/23/23 04:08 10/23/23 04:11 Temperature Temperature Source Pulse Rate 74 Respiratory Rate Blood Pressure 114/71 BP Systolic 114 BP Diastolic 71 Pulse Ox 98 10/23/23 04:11 10/23/23 05:18 10/23/23 05:18 Temperature Temperature Source Pulse Rate 70 69 Respiratory Rate Blood Pressure 120/73 BP Systolic 120 BP Diastolic 73 Pulse Ox 10/23/23 05:18 10/23/23 05:24 10/23/23 05:24 Temperature Temperature Source Pulse Rate 68 Respiratory Rate Blood Pressure 113/68 BP Systolic 113 BP Diastolic 68 Pulse Ox 100 10/23/23 05:29 10/23/23 05:29 10/23/23 05:34 Temperature Temperature Source Pulse Rate 68 Respiratory Rate Blood Pressure 108/69 109/68 BP Systolic 108 109 BP Diastolic 69 68 Pulse Ox 10/23/23 05:34 10/23/23 05:40 10/23/23 05:40 Temperature Temperature Source Pulse Rate 71 84 Respiratory Rate Blood Pressure 139/61 H BP Systolic 139 BP Diastolic 61 Pulse Ox 10/23/23 05:45 10/23/23 05:45 10/23/23 05:49 Temperature Temperature Source Pulse Rate 76 Respiratory Rate Blood Pressure 112/68 116/70 BP Systolic 112 116 BP Diastolic 68 70 Pulse Ox 10/23/23 05:49 10/23/23 05:54 10/23/23 05:54 Temperature Temperature Source Pulse Rate 71 73 Respiratory Rate Blood Pressure 119/71 BP Systolic 119 BP Diastolic 71 Pulse Ox Weight Weight: 210 lb 9.6 oz Body Mass Index (BMI) 34.0 Labs Labs Labs: Blood Type O POSITIVE Antibody Screen NEGATIVE Hct 35.6 % (37-47) L Hgb 11.4 g/dL (12.0-15.0) L Syphilis Total Ab Non-reactive Rubella IgG Antibody 14.8 IU/mL Hep Bs Antigen Negative (Negative) Hepatitis C Ab (EIA) 0.1 s/co ratio (0.0-0.9) Glucose 1 Hr 50 gm 167 mg/dL (70-140) H Gest Glucose Tolerance MG/DL Group B Strep DNA POSITIVE (Negative) H Rhogam given: No Miscellaneous Test Assessment & Plan (1) 39 weeks gestation of : PLAN: Plan Patient presented in labor & proceeded to have a - see delivery note. GBS negative Routine care
--- NOTE | 2023-10-23 07:05 | EX.PCM.OBRPT ---
Maternal Data Information Final AYAAN: 10/29/23 Gestational age: 39&1 Vaginal Delivery Maternal Presentation Maternal Presentation: Active Labor Operative Information Date of Procedure: 10/23/23 Pre-Operative Diagnosis: Labor Post-Operative Diagnosis: Labor Surgery / Procedure Performed: Spontaneous Vaginal Delivery Type of Anesthesia: Epidural Estimated Blood Loss: 350ml Findings Description of Procedure: Patient prepped & draped when C/C/+2. She pushed well to deliver the head. head gently guided to allow delivery of anterior and posterior shoulders. No excess traction placed on head. Body delivered and 3VC clamped & cut in delayed fashion. Placenta delivered with gentle traction and good uterine tone obtained. Presentation: ANGELLA Amniotic Membrane Rupture Type: Artificial Amniotic Fluid Description: Clear Placental Delivery Description: Expressed Placenta Disposition: [facility] Specimen(s) Removed: Placenta Cord Vessel Description: 3 Vessels Cord Entanglement: None Infant A Gender: Female (Odalys) (1 minute): 7 (5 minute): 9 Delayed Cord Clamping: Yes Post Vaginal Delivery Medications Given After Delivery: IV Pitocin and IM Pitocin Episiotomy Description: None Laceration: None Complication Complications: None
[2023-10-23] MEDS: Oxytocin 10 UNITS/ML Vial IM (07:06)
[2023-10-24 03:29] VITALS: BP 117/73; PULSE 88; RESP 16; TEMP 36.4; O2SAT 98
[2023-10-24 08:00] VITALS: BP 117/72; PULSE 75; RESP 14; TEMP 36.3; O2SAT 97
--- NOTE | 2023-10-24 08:13 | PCM.PROGNOTE ---
Subjective Subjective patient seen at bedside, doing well. Patient reports good pain control. lochia mild. Objective Data Objective Data Vital Signs: Vital Signs Temp Pulse Resp BP Pulse Ox O2 Del Method 97.5 F L 88 16 117/73 98 Room Air 10/24/23 03:29 10/24/23 03:29 10/24/23 03:29 10/24/23 03:29 10/24/23 03:29 10/24/23 03:29 Oxygen Delivery Method Room Air Weight: 95.527 kg Body Mass Index (BMI) 34.0 Intake & Output: Intake and Output for Last 24 Hours 10/22/23 10/23/23 10/24/23 23:59 23:59 23:59 Intake Total 886.5 / 886.5 Output Total 2450 / 2450 Balance -1563.5 / -1563.5 Lab / Micro Data 10/23/23 02:50 Physical Exam Const alert and oriented x3 General Appearance: cooperative HEENT normocephalic Neck General: normal visual inspection GI soft to palpation and non-distended GI Narrative: Fundus firm Extremity normal to inspection and no calf tenderness Skin no rashes or lesions noted Neuro oriented x3 and CN's II-XII intact bilaterally Psych mental status grossly normal Assessment & Plan Assessment/Plan (1) Vaginal delivery: PLAN: Plan PPD#1 , Doing well Routine care pain mgmt ambulation dc home
--- NOTE | 2023-10-24 08:14 | DCINST_ITS ---
Discharge Instructions Diet Discharge Diet: No restrictions Activity May resume sexual activity in: 6-8 weeks Dressing / Incision Call your doctor if you observe: Fever of 101 or Higher, Inability to urinate, Using more than 1 pad per hour and Uncontrolled pain Follow Up Care Please Follow Up With: Deepali Montes De Oca MD When: 1-2 weeks post and again at 6 weeks post . [phone] Test Results: Test results from this visit will be discussed in further detail at your follow- up appointment, if applicable. Discharge Plan Admission Admit Date/Time: 10/23/23 02:25 Attending Provider: Hannah Naranjo Primary Care Provider: Care PhysicianAnnika Primary Discharge Orders/Prescriptions Prescriptions: New acetaminophen 500 mg Tablet 1,000 mg PO Q6H PRN PRN (Reason: Pain 1-10 Or Fever) Qty: 0 0RF ibuprofen 600 mg Tablet 600 mg PO Q6H PRN PRN (Reason: Pain Score 1-10) Qty: 0 0RF Continued Prenatabs FA 1 TABLET tablet 1 tab PO DAILY Referrals / Follow Up: Care Physician,No Primary [Primary Care Provider] - Disposition Disposition (needs filled in before D/C Order can be placed): Home, Self Care
== END 2023-10-24 09:25 | disposition home or self-care (01) | DRG 807 ==
LOC: WPOUT 02:26 → WP 02:26
PROVIDERS: Admitting Provider Obstetrics & Gynecology; Visit Provider Obstetrics & Gynecology
DX: O80 Encounter for full-term uncomplicated delivery (principal); Z37.0 Single live birth; Z3A.39 39 weeks gestation of pregnancy; Z87.59 Personal history of other complications of pregnancy, childbirth and the puerperium
CPT/HCPCS: 59025; 59050; 85025; 86780; 86850; 86900; 86901; 99221; J7120; G0378